=== PATIENT | male | born 2000 ===

== ENCOUNTER 2020-07-16 22:26 | Emergency (ER) | payer MEDICAID, SELFPAY ==
--- NOTE | 2020-07-16 23:23 | XR_ITS ---
EXAMINATION: XR HAND, RIGHT CLINICAL INFORMATION: Trauma COMPARISON: None TECHNIQUE: PA, lateral, and oblique views of the right hand. FINDINGS: Lucency at the base of the third metacarpal. Consistent with fracture. No other definitive fracture is seen. There is no dislocation. XR/XR hand RT min 3V IMPRESSION: Fracture base of third metacarpal
--- NOTE | 2020-07-16 23:25 | ED.UPPEXIN ---
HPI - Extremity Injury (Upper) General Chief Complaint: Extremity Injury, Upper Stated Complaint: Arm injury Time Seen by Provider: 07/16/20 23:02 Source: patient Mode of arrival: ambulatory Limitations: no limitations History of Present Illness HPI narrative: Patient comes emergency room complaining of right hand pain. Prior to arrival, patient punched a wall. Patient complaining of pain over his 3rd 4th and 5th fingers and dorsum of hand. Patient denies injuries anywhere else. MD complaint: injury to: right Related Data Previous Rx's Medication Instructions Recorded tramadol 50 mg PO Q8H PRN #10 tab 07/17/20 Allergies Allergy/AdvReac Type Severity Reaction Status Date / Time amoxicillin [AMOXICILLIN] Allergy Unknown Rash Verified 07/16/20 23:34 ibuprofen [IBUPROFEN] Allergy Unknown RASH Verified 07/16/20 23:34 Penicillins [PENICILLINS] Allergy Unknown UNKNOWN Verified 07/16/20 23:34 Review of Systems Review of Systems: Constitutional : No Weight loss, No Fever, No Chills, No Night Sweats, No Fatigue, No Malaise ENT/Mouth : No Hearing loss, No Ear Pain, No Nasal Congestion, No Sinus Pain, No Hoarseness, No sore throat, No Rhinorrhea, No Swallowing Difficulty Eyes: No Eye Pain, No Swelling, No Redness, No Foreign Body, No Discharge, No Vision Changes Cardiovascular : No Chest Pain, No SOB, No Dyspnea on Exertion, No Orthopnea, No Edema, No Palpitations Respiratory : No Cough, No Sputum, No Wheezing, No Smoke Exposure, No Dyspnea Gastrointestinal : No Nausea, No Vomiting, No Diarrhea, No Constipation, No abdominal Pain, No Hematochezia, No Melena Genitourinary : no irregular bleeding, No Dysuria, No Urinary Frequency, No Hematuria, No Urinary Incontinence, No Urgency, No Flank Pain, No Urinary Flow Changes, No Hesitancy Musculoskeletal : Pain in dorsum of hand and swelling Skin : Small abrasion to dorsum of hand Neuro : No Weakness, No Numbness, No Paresthesias, No Loss of Consciousness, No Dizziness, No Headache Psych : No Anxiety/Panic, No Depression, No SI/HI/AH/VH, No Social Issues, Heme/Lymph: No Bruising, No Bleeding,No Lymphadenopathy Endocrine : No Polyuria, No Polydipsia, No Temperature Intolerance [facility] Past Medical History Medical History (Updated 07/17/20 @ 00:08 by Hazel Morrow MD) Patient denies significant medical history Surgical History (Updated 07/16/20 @ 23:32 by Kayla Villagran) History of knee surgery Social History Social History Advance Directives: No Advance Directives Information Provided: No Physical Exam Vital Signs: Vital Signs: Last Vital Signs Temp 97.6 F 07/16/20 23:29 Pulse 86 07/16/20 23:29 Resp 16 07/16/20 23:29 BP 126/69 07/16/20 23:29 Pulse Ox 97 07/16/20 23:29 Body Mass Index 40.1 Appearance: Alert. Oriented X3. No acute distress. Eyes: Pupils equal, round and reactive to light. ENT: Pharynx normal. Neck: Normal inspection. Neck supple. No lymph nodes noted. No crepitus CVS: Normal heart rate and rhythm. Pulses normal. Normal S1 and S2 Respiratory: No respiratory distress. Breath sounds normal. No Wheezing. No rales Abdomen: Soft and nontender. No rigidity. No distention. good BS x4 Skin: Small abrasion over the 3rd PIP Extremities: No lower extremity edema. Patient is able to flex and extend all fingers, oppose thumb to all fingers, no snuffbox tenderness. Pain to palpation over the 3rd 4th and 5th metacarpals Neuro: Oriented X 3. No motor deficit. No sensory deficit. Moving all extermities. No slurred speech. Course Course Course Narrative: Patient has a closed fracture of the base of the 3rd metacarpal. Patient's hand was splint, he will follow-up with orthopedics. Discharge Plan Discharge Clinical Impression: Fx metacarpal Qualifiers: Encounter type: initial encounter Metacarpal bone: third Fracture type: closed Metacarpal location: base Fracture alignment: nondisplaced Laterality: right Qualified Code(s): S62.342A - Nondisplaced fracture of base of third metacarpal bone, right hand, initial encounter for closed fracture Patient Disposition: Home, Self-Care Instructions: Hand Fracture (ED) Additional Instructions: Please follow-up with orthopedics. Please follow-up with your primary care physician tomorrow. If you have any worsening or new symptoms, please return to the emergency room or call 911 Prescriptions: New tramadol 50 mg tablet 50 mg PO Q8H PRN (Reason: pain) Qty: 10 RF: 0
[2020-07-16 23:29] VITALS: BP 126/69; PULSE 86; RESP 16; TEMP 36.4; O2SAT 97; BMI 40.1
[2020-07-16] MEDS: Acetaminophen 325 MG TABLET 650 MG PO (23:38)
== END 2020-07-17 00:30 | disposition home or self-care (01) ==
PROVIDERS: Emergency Provider Emergency Medicine
DX: S62.342A Nondisplaced fracture of base of third metacarpal bone, right hand, initial encounter for closed fracture (principal); M79.641 Pain in right hand; Y29.XXXA Contact with blunt object, undetermined intent, initial encounter; Y93.9 Activity, unspecified; Y92.009 Unspecified place in unspecified non-institutional (private) residence as the place of occurrence of the external cause; Y99.9 Unspecified external cause status; Z79.899 Other long term (current) drug therapy
CPT/HCPCS: 29125; 73130; 99283

== ENCOUNTER 2020-07-20 17:33 | Outpatient (REF) | payer MEDICAID, SELFPAY | END 2020-07-20 17:34 | disposition home or self-care (01) | LOC: HO.HOSX 17:33 | PROVIDERS: Visit Provider Orthopaedic Surgery | DX: Z13.89 Encounter for screening for other disorder (principal) ==

== ENCOUNTER 2020-07-21 09:51 | Outpatient (REF) | payer MEDICAID, SELFPAY ==
--- NOTE | 2020-07-21 10:24 | XR_ITS ---
EXAMINATION: XR HAND, RIGHT CLINICAL INFORMATION: Pain in right hand. COMPARISON: 07/16/2020 TECHNIQUE: Four views of the right hand. XR/XR hand RT min 3V FINDINGS AND IMPRESSION: Bones have normal alignment throughout the hand and wrist. The joint spaces are well-preserved. Again noted is a nondisplaced, transverse fracture of the proximal metaphysis of the third metacarpal. Currently, no evidence of healing. No periosteal reaction. Soft tissues are mildly swollen at the dorsal aspect of the hand. No radiopaque foreign body.
== END 2020-07-21 09:52 | disposition home or self-care (01) ==
LOC: HO.HOSX 09:51
PROVIDERS: Visit Provider Orthopaedic Surgery
DX: S62.312A Displaced fracture of base of third metacarpal bone, right hand, initial encounter for closed fracture (principal)
CPT/HCPCS: 26600; 73130; 99202

== ENCOUNTER 2020-07-30 08:06 | Emergency (ER) | payer MEDICAID, SELFPAY | END 2020-07-30 11:31 | disposition left against medical advice (07) | PROVIDERS: Emergency Provider Emergency Medicine | DX: M79.642 Pain in left hand (principal) ==

== ENCOUNTER 2020-08-03 08:53 | Outpatient (REF) | payer MEDICAID, SELFPAY | END 2020-08-03 08:54 | disposition home or self-care (01) | LOC: HO.HOSX 08:53 | PROVIDERS: Visit Provider Orthopaedic Surgery | DX: Z13.89 Encounter for screening for other disorder (principal) ==

== ENCOUNTER 2020-08-04 23:02 | Emergency (ER) | payer MEDICAID, SELFPAY ==
--- NOTE | ~2020-08-04 | XR_ITS ---
EXAMINATION: RIGHT HAND, RIGHT ELBOW CLINICAL INFORMATION: Recent fracture with continued pain COMPARISON: Right hand radiographs 07/16/2020 and 07/21/2020 TECHNIQUE: 3 views right hand, 3 views right elbow FINDINGS: Right elbow: No bone joint or soft tissue abnormality is seen. Right hand: Again noted is a horizontal fracture through the metaphysis at the base of the third metacarpal without significant displacement. No significant periosteal reaction is seen as of yet. There is been no interval change in appearance since the prior exam. No other or new fractures are seen. XR/XR hand RT min 3V IMPRESSION: 1. Normal elbow 2. Unchanged fracture base of third metacarpal
--- NOTE | ~2020-08-04 | XR_ITS ---
EXAMINATION: RIGHT HAND, RIGHT ELBOW CLINICAL INFORMATION: Recent fracture with continued pain COMPARISON: Right hand radiographs 07/16/2020 and 07/21/2020 TECHNIQUE: 3 views right hand, 3 views right elbow FINDINGS: Right elbow: No bone joint or soft tissue abnormality is seen. Right hand: Again noted is a horizontal fracture through the metaphysis at the base of the third metacarpal without significant displacement. No significant periosteal reaction is seen as of yet. There is been no interval change in appearance since the prior exam. No other or new fractures are seen. XR/XR elbow RT min 3V IMPRESSION: 1. Normal elbow 2. Unchanged fracture base of third metacarpal
[2020-08-04 23:22] VITALS: BP 129/81; PULSE 100; RESP 16; TEMP 35.8; O2SAT 99; BMI 41.5
--- NOTE | 2020-08-04 23:41 | ED_ITS ---
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) Pain Consistency: constant Location: right and upper extremity (elbow and hand) Quality: aching Radiation: none Relieving factors: nothing Exacerbating factors: range of motion Associated symptoms: denies other symptoms Related Data Previous Rx's Medication Instructions Recorded tramadol 50 mg PO Q8H PRN #10 tab 07/17/20 cyclobenzaprine 10 mg PO TID PRN #14 tab 08/05/20 Allergies Allergy/AdvReac Type Severity Reaction Status Date / Time morphine Allergy Mild rashes Verified 07/21/20 10:06 amoxicillin [AMOXICILLIN] Allergy Unknown Rash Verified 07/21/20 10:06 ibuprofen [IBUPROFEN] Allergy Unknown RASH Verified 07/21/20 10:06 Penicillins [PENICILLINS] Allergy Unknown UNKNOWN Verified 07/21/20 10:06 Review of Systems Review of Systems: Constitutional : No Fever, No Chills ENT/Mouth : No Ear Pain, No Hoarseness, No sore throat Eyes: No Eye Pain, No Swelling, No Redness, No Foreign Body Cardiovascular : No Chest Pain, No SOB Respiratory : No Cough, No Dyspnea Gastrointestinal : No Nausea, No Vomiting, No Diarrhea, No abdominal Pain Genitourinary : No Dysuria, No Hematuria Musculoskeletal : positive joint pain, No Myalgias, No Joint Swelling Skin : No Skin lacerations, No rash Neuro : No Weakness, No Numbness, No Loss of Consciousness, No Dizziness, No Headache PMFSH Past Medical History Attestation statement: The following information was validated with the patient. Medical History Patient denies significant medical history Surgical History History of back surgery History of knee surgery S/P ACL repair Family History Family History (Updated 07/21/20 @ 10:08 by JON Zheng) Mother No problems noted. Father No problems noted. 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 Oriented X3. No acute distress. Eyes: Pupils equal, round and reactive to light. ENT: Pharynx normal. Neck: Normal inspection. Neck supple. CVS: Normal heart rate and rhythm. Pulses normal. Respiratory: No respiratory distress. Breath sounds normal. Abdomen: Soft and nontender. Skin: Skin warm and dry. Normal skin color. Normal skin turgor. Extremities: No lower extremity edema. No calf ttp has splint on R wrist - NV intact distally c/o pain at R elbow and R wrist no obvious deformity or swelling Neuro: Oriented X 3. No motor deficit. No sensory deficit. Course Course Course Narrative: no acute fractures noted MDM - Extremity (Nontraumatic) MDM Narrative Medical decision making narrative: 20 yo male with known R 3rd metacarpal fracture already being treated by Dr. Reeves has splint on arrival - NV intact distally at this time will need xrays of R elbow and R wrist - PO medications, no obvious deformity Discharge Plan Discharge Clinical Impression: Elbow pain, right, Right hand pain Patient Disposition: Home, Self-Care Instructions: Arm Pain (ED) Additional Instructions: return to ED for any worsening symptoms or concerns your xrays showed no fracture, wear splint as directed Prescriptions: New cyclobenzaprine 10 mg tablet 10 mg PO TID PRN (Reason: muscle spasm) Qty: 14 RF: 0 No Action tramadol 50 mg tablet 50 mg PO Q8H PRN (Reason: pain) Qty: 10 RF: 0 Stand Alone Forms: Work/School Release
[2020-08-04] MEDS: traMADoL HCL 50 MG TABLET PO (23:45)
[2020-08-04] MEDS: Cyclobenzaprine HCl 10 MG TABLET PO (23:45)
== END 2020-08-05 00:24 | disposition home or self-care (01) ==
LOC: HO.ED 08-05 00:07
PROVIDERS: Emergency Provider Emergency Medicine
DX: M25.521 Pain in right elbow (principal); M79.641 Pain in right hand
CPT/HCPCS: 73080; 73130; 99283; 99284

== ENCOUNTER 2020-08-20 10:55 | Emergency (ER) | payer MEDICAID, SELFPAY ==
[2020-08-20 11:08] VITALS: BP 116/81; PULSE 102; RESP 18; O2SAT 99; BMI 41.7
[2020-08-20 11:13] VITALS: BP 116/81; PULSE 102; RESP 18; O2SAT 99
--- NOTE | 2020-08-20 11:38 | ED.URI ---
HPI - URI/Sore Throat General Chief Complaint: Upper Respiratory Symptoms Stated Complaint: sore throat Time Seen by Provider: 08/20/20 10:59 Source: patient Mode of arrival: ambulatory Limitations: no limitations History of Present Illness HPI Narrative: 20-year-old male presenting to the ED with complaints of a sore throat for 2 days. Reports that he had some shortness of breath yesterday which reolved after taking [id number] flu medication. 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 Reports he was positive for COVID in June 2019. Denies any other symptoms complaints or concerns at this time. MD elicited complaint: sore throat Onset (ago): day(s) (Two days) Consistency: constant Severity: moderate Able to tolerate fluids by mouth: Yes Exacerbating factors: swallowing Relieving factors: nothing Associated symptoms: denies other symptoms Treatments prior to arrival: other ([id number] flu medication per patient) Related Data Previous Rx's Medication Instructions Recorded tramadol 50 mg PO Q8H PRN #10 tab 07/17/20 cyclobenzaprine 10 mg PO TID PRN #14 tab 08/05/20 azithromycin See Rx Instructions .ROUTE 08/20/20 .COMPLEX #6 tab Allergies Allergy/AdvReac Type Severity Reaction Status Date / Time morphine Allergy Mild rashes Verified 07/21/20 10:06 amoxicillin [AMOXICILLIN] Allergy Unknown Rash Verified 07/21/20 10:06 ibuprofen [IBUPROFEN] Allergy Unknown RASH Verified 07/21/20 10:06 Penicillins [PENICILLINS] Allergy Unknown UNKNOWN Verified 07/21/20 10:06 Review of Systems Review of Systems: Constitutional : No Fever, No Chills, No fatigue, No Malaise ENT/Mouth : + sore throat, No runny nose Eyes: No Discharge Cardiovascular : No Chest Pain, No SOB Respiratory : No Cough, No Sputum, No Wheezing, No Smoke Exposure, No Dyspnea Gastrointestinal : No Nausea, No Vomiting, No Diarrhea Genitourinary : No irregular bleeding, No Dysuria, No Urinary Frequency, No Hematuria, No Urinary Incontinence, No Urgency, No Flank Pain, Musculoskeletal : No Myalgia Skin : No rash Neuro : No Headache Yes all other systems are reviewed and are negative PMFSH Past Medical History Attestation statement: The following information was validated with the patient. Medical History Patient denies significant medical history Surgical History History of back surgery History of knee surgery S/P ACL repair Family History Family History Mother No problems noted. Father No problems noted. 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 Blood pressure normal. Heart rate normal. Respiration rate normal. Temperature normal. Oxygen saturation normal. Appearance: Alert. Oriented X3. No acute distress. Head: Normal external exam. Normocephalic. Atraumatic. Eyes: PERRLA. EOMI. Conjunctiva and sclera normal. Eyelids normal. ENT: EAC normal. TM's Normal. Posterior pharynx mildly erythematous with exudate noted. Uvula midline. Moist mucous membranes. No trismus noted. No drooling noted. No muffled voice noted. Neck: Normal inspection. Neck supple. FROM. No adenopathy. Thyroid Normal. No meningeal signs. No neck mass noted. CVS: Normal heart rate and rhythm. Heart sound normal. No murmurs noted. Pulses normal throughout. Respiratory: No respiratory distress. Painless inspiration. Breath sounds normal. No wheezes/rales/rhonchi noted. Chest nontender. No accessory muscle usage noted or decreased air movement noted. Back: Full range of motion noted. Skin: Skin warm and dry. Normal skin color. Normal skin turgor. No rashes/lesions/lacerations noted. Extremities: No lower extremity edema. Extremities exhibit normal range of motion. Extremities nontender. Neuro: Oriented X 3. No motor deficit. No sensory deficit. Reflexes normal. MDM - URI/Sore Throat Medical Records Attestation: I reviewed the patient's medical records. Lab Data Attestation: I reviewed the patient's lab results. Discharge Plan Discharge Clinical Impression: Pharyngitis Patient Disposition: Home, Self-Care Instructions: Pharyngitis (ED), COVID-19 (Coronavirus Disease 2019) (ED) Additional Instructions: Based on your symptoms and history we have sent a COVID-19. Although your RESULT IS PENDING at this time. RESULTS should return within 72 hours. At this time you will be contacted with either NEGATIVE OR POSITIVE results. -Please wait until we contact you for your results. At this time you will be okay for discharge. Please plan for self quarantine for up to 14 days. Do not expose yourself to others. You may not go to work. If testing does come back negative you may return to activities as long as you are no longer having any symptoms for at least 3 days. Please continue to follow cold instructions and wash your hands frequently. You may take Tylenol as directed on the bottle for pain or fever. Patient seen in the emergency department on 08/20/20 and should be excused from work until negative test results AND until 72 hours without any symptoms AND at least 10 days have passed since symptoms first appeared or since last exposure to COVID-19 positive patient CDC Guidelines for home isolation: - Stay away from others - WEAR A MASK if you are sick AND STAY HOME - Cover your mouth and nose with a tissue when you cough or sneeze. Dispose of tissues in a lined trash can and wash your hands immediately with soap and water for at least 20 seconds. If soap and water are not available, clean hands with alcohol-based hand president that contains at least 60% alcohol. - Clean your hands often with soap and water for at least 20 seconds - Avoid touching your eyes, nose and mouth with unwashed hands - Do not share dishes, drinking glasses, cups, eating utensils, towels, or bedding with other people in your home. After using these items, wash them thoroughly with soap and water or put in the learning center coordinator. - Clean high-touch surfaces in your isolation area ( sick room and bathroom) every day; let a caregiver clean and disinfect high-touch surfaces in other areas of the home. Clean the area or item with soap and water or another detergent if it is dirty. Then, use a household disinfectant. - Limit contact with pets and animals: If you must care for a pet, wash your hands before and after interacting with them). Prescriptions: New azithromycin 250 mg tablet See Rx Instructions .ROUTE .COMPLEX Qty: 6 RF: 0 No Action tramadol 50 mg tablet 50 mg PO Q8H PRN (Reason: pain) Qty: 10 RF: 0 cyclobenzaprine 10 mg tablet 10 mg PO TID PRN (Reason: muscle spasm) Qty: 14 RF: 0 Referrals: [place] [Primary Care Provider] - 2 days Stand Alone Forms: Work/School Release Print Language: Estonian
[2020-08-20 12:49] LABS: Influenza A PCR NEGATIVE (Negative); Influenza B PCR NEGATIVE (Negative); Resp Syncy Virus RNA Qual PCR NEGATIVE (Negative); SARS COV2 PCR INHOUSE NEGATIVE (Negative)
== END 2020-08-20 12:20 | disposition home or self-care (01) ==
PROVIDERS: Physician Assistant Medical; Emergency Provider Emergency Medicine
DX: J02.9 Acute pharyngitis, unspecified (principal); Z86.16 Personal history of COVID-19; F17.200 Nicotine dependence, unspecified, uncomplicated; F12.90 Cannabis use, unspecified, uncomplicated
CPT/HCPCS: 0241U; 36415; 87880; 99283; 99285

== ENCOUNTER 2020-09-26 18:53 | Emergency (ER) | payer MEDICAID, SELFPAY ==
--- NOTE | ~2020-09-26 | XR_ITS ---
EXAMINATION: XR TOES, RIGHT CLINICAL INFORMATION: Stubbed right great toe. Pain COMPARISON: None TECHNIQUE: 3 views of the right toes were obtained. FINDINGS: Questionable tiny avulsion fracture along the medial cortex of the distal end of the first proximal phalanx. Remainder of the visualized osseous structures and joints are unremarkable. No soft tissue air or radiopaque foreign body. XR/XR toe RT min 2V IMPRESSION: Questionable tiny avulsion fracture along the medial cortex of the distal end of the right foot first proximal phalanx.
[2020-09-26 19:02] VITALS: BP 148/79; PULSE 95; RESP 18; TEMP 36.3; O2SAT 97; BMI 37.3
[2020-09-26] MEDS: Acetaminophen 325 MG TABLET 650 MG PO (19:39)
--- NOTE | 2020-09-26 19:54 | ED.LOWEXIN ---
HPI - Extremity Injury (Lower) General Chief Complaint: Extremity Injury, Lower Stated Complaint: stubbed toe Time Seen by Provider: 09/26/20 19:52 Source: patient Mode of arrival: ambulatory Limitations: no limitations History of Present Illness HPI Narrative: Stubbed her right great toe on TV stand at home while cleaning. Having pain in the right great toe. complaint: foot injury Onset (ago): minute(s) Injury: Right: foot Place: home Severity: mild Relieving factors: immobilization Exacerbating factors: nothing Context: direct blow Other symptoms: none Treatments prior to arrival: cold therapy Related Data Previous Rx's Medication Instructions Recorded tramadol 50 mg PO Q8H PRN #10 tab 07/17/20 cyclobenzaprine 10 mg PO TID PRN #14 tab 08/05/20 azithromycin See Rx Instructions .ROUTE 08/20/20 .COMPLEX #6 tab Allergies Allergy/AdvReac Type Severity Reaction Status Date / Time morphine Allergy Mild rashes Verified 09/26/20 19:01 amoxicillin [AMOXICILLIN] Allergy Unknown Rash Verified 09/26/20 19:01 ibuprofen [IBUPROFEN] Allergy Unknown RASH Verified 09/26/20 19:01 Penicillins [PENICILLINS] Allergy Unknown UNKNOWN Verified 09/26/20 19:01 Review of Systems Review of Systems: Constitutional: No Weight loss, No Fever, No Chills, No Night Sweats, No Fatigue, No Malaise ENT/Mouth: No Hearing loss, No Ear Pain, No Nasal Congestion, No Sinus Pain, No Hoarseness, No sore throat, No Rhinorrhea, No Swallowing Difficulty Eyes: No Eye Pain, No Swelling, No Redness, No Foreign Body, No Discharge, No Vision Changes Cardiovascular: No Chest Pain, No SOB, No Dyspnea on Exertion, No Orthopnea, No Edema, No Palpitations Respiratory: No Cough, No Sputum, No Wheezing, No Smoke Exposure, No Dyspnea Gastrointestinal: No Nausea, No Vomiting, No Diarrhea, No Constipation, No abdominal Pain, No Hematochezia, No Melena Genitourinary: No Urinary Frequency, No Hematuria, No Urinary Incontinence, No Urgency, No Flank Pain, No Urinary Flow Changes, No Hesitancy Musculoskeletal: No joint pain, No Myalgias, No Joint Swelling, as noted per HPI Skin: No Skin Lesions, No rash Neuro: No Weakness, No Numbness, No Paresthesias, No Loss of Consciousness, No Dizziness, No Headache Psych: No Social Issues Heme/Lymph: No Bruising, No Bleeding,No Lymphadenopathy Endocrine: No Polyuria, No Polydipsia, No Temperature Intolerance Yes all other systems are reviewed and are negative [facility] Past Medical History Medical History Patient denies significant medical history Surgical History History of back surgery History of knee surgery S/P ACL repair Family History Family History Mother No problems noted. Father No problems noted. 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 Physical Exam Vital Signs: Vital Signs: Last Vital Signs Temp 97.4 F 09/26/20 19:02 Pulse 95 09/26/20 19:02 Resp 18 09/26/20 19:02 BP 148/79 H 09/26/20 19:02 Pulse Ox 97 09/26/20 19:02 Body Mass Index 37.3 Reviewed Const: General: cooperative and healthy appearing; No acute distress or intoxicated appearing Nutritional Appearance: average body habitus Orientation/consciousness: patient oriented x3 HENMT: Head: Yes normal to inspection Ears: hearing grossly normal bilaterally Eyes: General: appearance normal, both eyes and all related structures Visual Lora: normal visual lora by confrontation Resp: Auscultation: clear to auscultation bilaterally Cardio: Rhythm: regular rhythm Heart sounds: S1 normal heart sound present and S2 normal heart sound present : General: Yes no CVA tenderness Back/Spine/Pelvis: Back: no CVA tenderness Skin: General skin exam: no rashes or lesions noted Neuro: General: patient oriented x3 Extrem: General: Yes normal to inspection Ankle/foot/toe images: 1. Slightly ecchymosis area over the dorsum of the toe. No open wound. No erythema. Nailbed within normal limits. Course Course Course Narrative: Placed in postop shoe with ortho follow-up. MDM - Extremity Injury (Lower) Medical Records Attestation: I reviewed the patient's medical records. Lab Data Attestation: I reviewed the patient's lab results. Imaging Data Foot x-ray: Radiologist's impression: [address] [id number] ReportSigned Patient: Navdeep MuhammadMR#: [id number]: 2000Acct:[id number]/Sex: 20 / MADM Date: 09/26/20Loc: HO.EDAttending Dr: Ordering Physician: Generic ED Physician Date of Service: 09/26/20 Procedure(s): XR toe RT min 2V Accession Number(s): [id number] cc: Generic ED Physician~ EXAMINATION: XR TOES, RIGHT CLINICAL INFORMATION: Stubbed right great toe. Pain COMPARISON: None TECHNIQUE: 3 views of the right toes were obtained. FINDINGS: Questionable tiny avulsion fracture along the medial cortex of the distal end of the first proximal phalanx. Remainder of the visualized osseous structures and joints are unremarkable. No soft tissue air or radiopaque foreign body. XR/XR toe RT min 2V IMPRESSION: Questionable tiny avulsion fracture along the medial cortex of the distal end of the right foot first proximal phalanx. Dictated By:SWAPNIL OSUNA MDSigned By:<Electronically signed by SWAPNIL OSUNA MD in OV>09/26/201924 DD/ 13TD/TT: Chief Deputy Court Clerk: AP Discharge Plan Discharge Clinical Impression: Fracture of toe Qualifiers: Encounter type: initial encounter Toe: great toe Fracture type: closed Patient Disposition: Home, Self-Care Additional Instructions: Rest, ice, elevate, compress Tylenol for pain discomfort Were orthopedic shoe for comfort Follow-up with Orthopedics as discussed Return if any concerns or worsening symptoms Thank you Prescriptions: No Action azithromycin 250 mg tablet See Rx Instructions .ROUTE .COMPLEX Qty: 6 RF: 0 tramadol 50 mg tablet 50 mg PO Q8H PRN (Reason: pain) Qty: 10 RF: 0 cyclobenzaprine 10 mg tablet 10 mg PO TID PRN (Reason: muscle spasm) Qty: 14 RF: 0 Referrals: Chritsiane Khan MD [Physician] - 2 weeks
== END 2020-09-26 20:30 | disposition home or self-care (01) ==
PROVIDERS: Emergency Provider Emergency Medicine
DX: S92.421A Displaced fracture of distal phalanx of right great toe, initial encounter for closed fracture (principal); W22.03XA Walked into furniture, initial encounter; Y93.89 Activity, other specified; Y92.019 Unspecified place in single-family (private) house as the place of occurrence of the external cause; Y99.9 Unspecified external cause status
CPT/HCPCS: 73660; 99283

== ENCOUNTER 2021-01-16 03:38 | Emergency (ER) | payer OTHER, SELFPAY ==
--- NOTE | ~2021-01-16 | CT_ITS ---
EXAMINATION: NONCONTRAST HEAD CT NONCONTRAST MAXILLOFACIAL CT NONCONTRAST CERVICAL SPINE CT INDICATION INFORMATION: Fall, EtOH COMPARISON: None TECHNIQUE: Separate noncontrast CT examinations of the head, maxillofacial bones, and cervical spine were performed. Coronal and sagittal images were created for each examination at the technologist workstation. DOSE LOWERING TECHNIQUES: This CT examination was performed using dose optimization techniques as appropriate, variously including the following: - Automated exposure control - Adjustment of mA and/or kV according to patient size (this includes techniques or standardized protocols for targeted exams were dose is matched to indication/reason for exam; i.e. extremities or head) - Use of iterative reconstruction technique DLP: 2062 mGy-cm FINDINGS: Head: There is no evidence of acute intracranial hemorrhage or territorial infarction. No abnormal mass-effect or midline shift is seen. Pulliam to white matter differentiation is well preserved. No extra-axial fluid collections are identified. The ventricles are normal in size. There is no abnormal attenuation within the brain parenchyma. The osseous structures and soft tissues are normal. The mastoid air cells are well aerated. Maxillofacial: Subtle left nasal bone fracture is noted. Mucous retention cyst is noted in the left sphenoid sinus. Small mucous retention cyst noted in the right maxillary sinus. The uncinate process is normal bilaterally. There is mucosal thickening of the right infundibulum. There is leftward deviation of the nasal septum. The mandibular condyles are well-seated in the condylar fossa. The orbits demonstrate a normal appearance bilaterally. The globes are intact, and there are no suspicious findings to suggest retrobulbar hemorrhage. Cervical spine: There is anatomic alignment of the vertebral bodies and posterior elements. Vertebral body heights are maintained. Intervertebral disc spaces are preserved. No evidence of acute fracture. No prevertebral soft tissue swelling. The included thyroid gland is unremarkable. CT/CT cervical spine wo con IMPRESSION: Subtle left nasal bone fracture, which may be acute; clinical correlation recommended. No acute findings identified in the head or cervical spine.
[2021-01-16 03:59] VITALS: BP 98/49; PULSE 80; RESP 16; TEMP 36.1; O2SAT 99; BMI 41.9
--- NOTE | 2021-01-16 05:44 | ED.ALCOHOL ---
HPI - Alcohol General Chief Complaint: ETOH/Substance Use Stated Complaint: deep lac on upper lip Time Seen by Provider: 01/16/21 05:38 Source: patient Mode of arrival: ambulatory Limitations: no limitations History of Present Illness HPI narrative: Patient comes emergency room complaining of alcohol intoxication and a laceration to the lip. Patient states that he drank a lot of alcohol, patient states that he does not remember much what happened. The girlfriend found on the floor. Related Data Previous Rx's Medication Instructions Recorded tramadol 50 mg PO Q8H PRN #10 tab 07/17/20 cyclobenzaprine 10 mg PO TID PRN #14 tab 08/05/20 azithromycin See Rx Instructions .ROUTE 08/20/20 .COMPLEX #6 tab tramadol 50 mg PO BID PRN #5 tab 01/16/21 Allergies Allergy/AdvReac Type Severity Reaction Status Date / Time morphine Allergy Mild rashes Verified 09/26/20 19:01 amoxicillin [AMOXICILLIN] Allergy Unknown Rash Verified 09/26/20 19:01 ibuprofen [IBUPROFEN] Allergy Unknown RASH Verified 09/26/20 19:01 Penicillins [PENICILLINS] Allergy Unknown UNKNOWN Verified 09/26/20 19:01 Review of Systems Review of Systems: Constitutional : No Weight loss, No Fever, No Chills, No Night Sweats, No Fatigue, No Malaise ENT/Mouth : No Hearing loss, No Ear Pain, No Nasal Congestion, No Sinus Pain, No Hoarseness, No sore throat, No Rhinorrhea, No Swallowing Difficulty Eyes: No Eye Pain, No Swelling, No Redness, No Foreign Body, No Discharge, No Vision Changes Cardiovascular : No Chest Pain, No SOB, No Dyspnea on Exertion, No Orthopnea, No Edema, No Palpitations Respiratory : No Cough, No Sputum, No Wheezing, No Smoke Exposure, No Dyspnea Gastrointestinal : No Nausea, No Vomiting, No Diarrhea, No Constipation, No abdominal Pain, No Hematochezia, No Melena Genitourinary : no irregular bleeding, No Dysuria, No Urinary Frequency, No Hematuria, No Urinary Incontinence, No Urgency, No Flank Pain, No Urinary Flow Changes, No Hesitancy Musculoskeletal : No joint pain, No Myalgias, No Joint Swelling Skin : Laceration to the lip and philtrum Neuro : No Weakness, No Numbness, No Paresthesias, No Loss of Consciousness, No Dizziness, No Headache Psych : No Anxiety/Panic, No Depression, No SI/HI/AH/VH, No Social Issues, Heme/Lymph: No Bruising, No Bleeding,No Lymphadenopathy Endocrine : No Polyuria, No Polydipsia, No Temperature Intolerance [facility], [facility] Past Medical History Medical History Patient denies significant medical history Surgical History History of back surgery History of knee surgery S/P ACL repair Family History Family History Mother No problems noted. Father No problems noted. 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 Oriented X3. No acute distress. Eyes: Pupils equal, round and reactive to light. ENT: Pharynx normal. Neck: Normal inspection. Neck supple. No lymph nodes noted. No crepitus CVS: Normal heart rate and rhythm. Pulses normal. Normal S1 and S2 Respiratory: No respiratory distress. Breath sounds normal. No Wheezing. No rales Abdomen: Soft and nontender. No rigidity. No distention. good BS x4 Skin: Skin warm and dry. Multiple ecchymoses to forehead and facial cheeks, 2 cm laceration to the philtrum, laceration 0.5 cm to the upper lip Extremities: No lower extremity edema. No lower extremity edema. No Lacerations. No Rash Neuro: Oriented X 3. No motor deficit. No sensory deficit. Moving all extermities. No slurred speech. Course Course Course Narrative: I discussed the CT scan with the patient, he does have a nasal fracture. Sutures were applied to the patient's lip and philtrum Procedures Laceration Laceration 1: Site: lip Size (cm): 0.5 Description: linear Depth: simple, single layer Local Anesthetic: lidocaine 2% Amount of anesthesia used (mL): 0.5 Skin layer closed with: nylon Size (cm): 6-0 Number of sutures: 4 Technique: simple, interrupted Laceration 2: Site: face (Philtrum) Size (cm): 2 Description: irregular Depth: simple, single layer Local Anesthetic: lidocaine 2% Amount of anesthesia used (mL): 2 Skin layer closed with: nylon Size (cm): 6-0 Number of sutures: 7 Technique: simple, interrupted MDM - Alcohol Imaging Data Head, cervical, facial bone CT scan: Radiologist's impression: Head: There is no evidence of acute intracranial hemorrhage or territorial infarction. No abnormal mass-effect or midline shift is seen. Pulliam to white matter differentiation is well preserved. No extra-axial fluid collections are identified. The ventricles are normal in size. There is no abnormal attenuation within the brain parenchyma. The osseous structures and soft tissues are normal. The mastoid air cells are well aerated. Maxillofacial: Subtle left nasal bone fracture is noted. Mucous retention cyst is noted in the left sphenoid sinus. Small mucous retention cyst noted in the right maxillary sinus. The uncinate process is normal bilaterally. There is mucosal thickening of the right infundibulum. There is leftward deviation of the nasal septum. The mandibular condyles are well-seated in the condylar fossa. The orbits demonstrate a normal appearance bilaterally. The globes are intact, and there are no suspicious findings to suggest retrobulbar hemorrhage. Cervical spine: There is anatomic alignment of the vertebral bodies and posterior elements. Vertebral body heights are maintained. Intervertebral disc spaces are preserved. No evidence of acute fracture. No prevertebral soft tissue swelling. The included thyroid gland is unremarkable. CT/CT cervical spine wo con IMPRESSION: Subtle left nasal bone fracture, which may be acute; clinical correlation recommended. No acute findings identified in the head or cervical spine. Discharge Plan Discharge Clinical Impression: Closed fracture nasal bone Qualifiers: Encounter type: initial encounter Qualified Code(s): S02.2XXA - Fracture of nasal bones, initial encounter for closed fracture Alcohol intoxication Qualifiers: Complication of substance-induced condition: uncomplicated Qualified Code(s): F10.920 - Alcohol use, unspecified with intoxication, uncomplicated Face lacerations Qualifiers: Encounter type: initial encounter Qualified Code(s): S01.81XA - Laceration without foreign body of other part of head, initial encounter Patient Disposition: Home, Self-Care Instructions: Nasal Fracture (ED), Laceration (ED), Alcohol Intoxication (ED) Additional Instructions: The sutures need to be removed in 7-10 days. Please follow-up with your primary care physician tomorrow. If you have any worsening or new symptoms, please return to the emergency room or call 911 Prescriptions: New tramadol 50 mg tablet 50 mg PO BID PRN (Reason: pain) Qty: 5 RF: 0 No Action azithromycin 250 mg tablet See Rx Instructions .ROUTE .COMPLEX Qty: 6 RF: 0 tramadol 50 mg tablet 50 mg PO Q8H PRN (Reason: pain) Qty: 10 RF: 0 cyclobenzaprine 10 mg tablet 10 mg PO TID PRN (Reason: muscle spasm) Qty: 14 RF: 0
[2021-01-16] MEDS: Lidocaine HCl 2 % MPF 5 ML VIAL 15 ML INFILTRATI (06:30)
--- NOTE | 2021-01-16 06:30 | PC.NURSE ---
(EDT) at bedside suturing patient's lip. Will continue to monitor.
== END 2021-01-16 07:20 | disposition home or self-care (01) ==
PROVIDERS: Emergency Provider Emergency Medicine
DX: F10.920 Alcohol use, unspecified with intoxication, uncomplicated (principal); Y90.9 Presence of alcohol in blood, level not specified; S01.511A Laceration without foreign body of lip, initial encounter; S01.81XA Laceration without foreign body of other part of head, initial encounter; S02.2XXA Fracture of nasal bones, initial encounter for closed fracture; W19.XXXA Unspecified fall, initial encounter; F12.90 Cannabis use, unspecified, uncomplicated; Y93.9 Activity, unspecified; Y92.9 Unspecified place or not applicable; Y99.9 Unspecified external cause status
CPT/HCPCS: 12011; 70450; 70486; 72125; 99283; 99284

== ENCOUNTER 2021-03-21 10:56 | Emergency (ER) | payer OTHER, SELFPAY ==
--- NOTE | ~2021-03-21 | XR_ITS ---
EXAMINATION: BILATERAL ELBOW. CLINICAL INFORMATION: Bilateral elbow pain. COMPARISON: None TECHNIQUE: 3 views each elbow. FINDINGS: Left elbow: There is no visible acute fracture, dislocation or subluxation seen. No abnormal joint effusion. Right elbow: There is no visible acute fracture, dislocation or subluxation seen. The soft tissues are normal. XR/XR elbow LT min 3V IMPRESSION: Unremarkable bilateral elbow exam.
--- NOTE | ~2021-03-21 | CT_ITS ---
EXAMINATION: CT HEAD WITHOUT CONTRAST CLINICAL INFORMATION: Tremor. COMPARISON: None TECHNIQUE: Contiguous axial imaging was performed from the skull base to vertex without intravenous administration of contrast. This CT examination was performed using dose optimization techniques as appropriate, variously including the following: *Automated exposure control *Adjustment of mA and/or kV according to patient size (this includes techniques or standardized protocols for targeted exams where dose is matched to indication/reason for exam; i.e. extremities or head) *Use of iterative reconstruction technique DLP: 836 mGy-cm FINDINGS: There is no evidence of acute intracranial hemorrhage or territorial infarction. No abnormal mass effect or midline shift is seen. Pulliam to white matter differentiation is well preserved. No extra-axial fluid collections are identified. The ventricles are normal in size. There is no abnormal attenuation within the brain parenchyma. The osseous structures and soft tissues are normal. There is a moderate size polyp or retention cyst left maxillary sinus. There is minimal mucoperiosteal thickening bilateral posterior ethmoid sinuses. CT/CT head/brain wo con IMPRESSION: No acute intracranial process seen.
--- NOTE | ~2021-03-21 | XR_ITS ---
EXAMINATION: BILATERAL ELBOW. CLINICAL INFORMATION: Bilateral elbow pain. COMPARISON: None TECHNIQUE: 3 views each elbow. FINDINGS: Left elbow: There is no visible acute fracture, dislocation or subluxation seen. No abnormal joint effusion. Right elbow: There is no visible acute fracture, dislocation or subluxation seen. The soft tissues are normal. XR/XR elbow RT min 3V IMPRESSION: Unremarkable bilateral elbow exam.
[2021-03-21 11:04] VITALS: BP 122/76; PULSE 66; RESP 18; TEMP 36.7; O2SAT 99; BMI 38.7
--- NOTE | 2021-03-21 11:42 | ED.GENADULT ---
HPI - General Adult General Chief complaint: General Medical Stated complaint: trembles, arms & hands numb Time Seen by Provider: 03/21/21 11:54 Source: patient Mode of arrival: ambulatory Limitations: no limitations History of Present Illness HPI narrative: Patient presents to ED for tingling in extremities. Patient states this has been going on for about 3 weeks. Patient denies any episode of urinary/bowel incontinence while having tingling in extremities. Patient states having bilateral elbow pain causing tingling in his hands. Patient states also tingling in his legs. Patient denies ever losing consciousness or anyone telling him he was foaming at the mouth or any loss of consciousness. Patient states history of seizure but has not seen a neurologist for follow-up. Patient main concern is tingling in extremities. Patient denies any headache, shortness of breath, slurred speech, facial droop, paralysis. Related Data Previous Rx's Medication Instructions Recorded tramadol 50 mg tablet 50 mg PO Q8H PRN #10 tab 07/17/20 cyclobenzaprine 10 mg tablet 10 mg PO TID PRN #14 tab 08/05/20 azithromycin 250 mg tablet See Rx Instructions .ROUTE 08/20/20 .COMPLEX #6 tab tramadol 50 mg tablet 50 mg PO BID PRN #5 tab 01/16/21 Allergies Allergy/AdvReac Type Severity Reaction Status Date / Time morphine Allergy Mild rashes Verified 09/26/20 19:01 amoxicillin [AMOXICILLIN] Allergy Unknown Rash Verified 09/26/20 19:01 ibuprofen [IBUPROFEN] Allergy Unknown RASH Verified 09/26/20 19:01 Penicillins [PENICILLINS] Allergy Unknown UNKNOWN Verified 09/26/20 19:01 Review of Systems Review of Systems: Yes all other systems are reviewed and are negative Constitutional: Constitutional: Reports as per HPI and Reports no additional constitutional complaints Eyes: Eyes: Reports as per HPI and Reports no additional eye complaints ENT: Reports system reviewed and no additional complaints, except as documented and Reports as per HPI Cardiovascular: Cardiovascular: Reports as per HPI and Reports no additional cardiovascular complaints Respiratory: Respiratory: Reports as per HPI and Reports no additional respiratory complaints Gastrointestinal: Gastrointestinal: Reports as per HPI and Reports no additional gastrointestinal complaints Genitourinary: Genitourinary: Reports no additional male genitourinary complaints and Reports as per HPI Musculoskeletal: Musculoskeletal: Reports no additional musculoskeletal complaints, Reports as per HPI and Reports arthralgias (Bilateral elbow pain) Neurologic: Reports system reviewed and no additional complaints, except as documented and Reports as per HPI Comments: Tingling in extremities. Psychiatric: Psychiatric: Reports no additional psychiatric complaints and Reports as per HPI [facility] Past Medical History Surgical History History of back surgery History of knee surgery S/P ACL repair Family History Family History Mother No problems noted. Father No problems noted. 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 Physical Exam Vital Signs: Vital Signs: Last Vital Signs Temp 98.0 F 03/21/21 11:04 Pulse 66 03/21/21 11:04 Resp 18 03/21/21 11:04 BP 122/76 03/21/21 11:04 Pulse Ox 99 03/21/21 11:04 Body Mass Index 38.7 Const: General: cooperative, healthy appearing, comfortable, no acute distress, well developed, alert, awake and Physically active Orientation/consciousness: patient oriented x3 HENMT: Head: Yes normal to inspection and Yes No palpable skull fracture present Eyes: General: appearance normal, both eyes and all related structures Neck: Neck: Yes normal visual inspection, Yes full ROM, Yes no lymphadenopathy, Yes no meningeal signs, Yes trachea midline, Yes supple and No tender Chest: Chest palpation & inspection: normal inspection of the chest and normal palpation of entire chest wall Resp: Effort & Inspection: normal respiratory effort and able to speak in complete sentences Auscultation: clear to auscultation bilaterally Cardio: Jugular venous distension: no JVD Heart sounds: S1 normal heart sound present and S2 normal heart sound present GI: Inspection: Yes normal to inspection and No abdominal wall ecchymosis Palpation (GI): Soft to palpation, not firm, nontender, no guarding and not rigid : General: No CVA tenderness and Yes no CVA tenderness Back/Spine/Pelvis: Back: no CVA tenderness, No CVA tenderness and No back tenderness Skin: General skin exam: no rashes or lesions noted and elasticity normal Neuro: Other: Negative for any tremors. Negative for any slurred speech. Negative for any facial droop. Negative for paralysis of extremities. All extremities equal strength 5+. [id number] and rapid hand movement intact. Negative Romberg. Negative nystagmus. General: patient oriented x3, gait normal, no meningeal signs and CN's II-XI intact bilaterally Cranial nerves: Yes CN's II-XII intact bilaterally Extrem: General: Yes normal to inspection and Yes full ROM Elbow/forearm/wrist images: 1. Mild tenderness on palpation. Negative for any erythema, swelling, redness, warmth, stiffness pr negative for any ecchymosis. Brachial and radial pulse intact. Neuro/motor exam intact. 2. Mild tenderness on palpation. Negative for any erythema, swelling, redness, warmth, stiffness pr negative for any ecchymosis. Brachial and radial pulse intact. Neuro/motor exam intact. Psych: Appearance: grossly normal, well kempt and not disheveled Course Course Course Narrative: Patient not having any seizure. History physical exam does not indicate seizure. Patient having any tremors. Will negative for any neuro deficit. We will do basic labs including electrolytes, CPK, head CT, and bilateral elbow x-ray. Reevaluation(s) Reevaluation #1: Patient labs are normal and at baseline. Head CT scan normal. Bilateral elbow x-ray negative for any fracture or deformity. Diagnosis paresthesia. Patient informed to follow-up with neurology. Once again history physical exam does not indicate seizure. Not concerned for any cardiac etiology. Patient denies any chest pain or shortness of breath. No concern for pulmonary embolus or septic joint. Patient does not have any upper extremity swelling, calf pain, chest pain leg swellin,or shortness of breath. Negative for signs of dehydration rhabdomyolysis. Not concerning for withdrawal. Patient denies any alcohol or drug abuse. Patient only takes marijuana from dispensary. Time: 14:20 Medical Decision Making [facility] Narrative Medical decision making narrative: Paresthesia Lab Data Result diagrams: 03/21/21 12:17 03/21/21 12:17 Labs: Lab Results 03/21/21 03/21/21 03/21/21 Range/Units 12:17 12:17 12:47 WBC 10.7 (4.8-10.8) X10*3/uL RBC 5.11 (4.60-5.80) X10*6/uL Hgb 14.1 (14.0-18.0) g/dl Hct 40.7 L (42-52) % MCV 79.6 L (80-98) fL MCH 27.6 (27.0-33.0) pg MCHC 34.6 (31.0-36.0) g/dl RDW 13.4 (11.0-16.0) % Plt Count 251 (160-400) X10*3/uL MPV 9.8 (9.4-12.4) fL Immature Gran % (Auto) 0.2 (0.0-0.4) % Neut % (Auto) 52.0 (45-73) % Lymph % (Auto) 36.3 (20-40) % Mccook % (Auto) 5.3 (2-11) % Eos % (Auto) 5.7 H (0-4) % Baso % (Auto) 0.5 (0-2) % Lymph # (Auto) 3.9 (1.2-4.9) X10*3/uL [place] # (Auto) 0.6 (0.1-1.2) X10*3/uL Eos # (Auto) 0.6 H (0.0-0.4) X10*3/uL Baso # (Auto) 0.1 (0.0-0.2) X10*3/uL Abs Immat Gran (auto) 0.02 (0.00-0.03) X10*3/uL Absolute Neuts (auto) 5.6 (2.0-8.3) X10*3/uL Absolute Nucleated RBC 0.000 (0.0-0.012) X10*3/uL Nucleated RBC % (auto) 0.0 (0.0-0.2) /100WBC Sodium 140 (135-145) mmol/L Potassium 4.0 (3.3-5.1) mmol/L Chloride 107 (96-108) mmol/L Carbon Dioxide 25 (22-29) mmol/L Anion Gap 12 (12-20) BUN 8 L (9-16) mg/dL Creatinine 0.90 (0.5-1.4) mg/dL Estim Creat Clear Calc 168.9 Estimated GFR > 60 Random Glucose 116 H (60-115) mg/dL Calcium 9.6 (8.4-10.2) mg/dL Magnesium 2.1 (1.6-2.6) mg/dL Total Bilirubin 0.7 (0.0-1.0) mg/dL AST 21 (5-37) U/L ALT 41 H (0-40) U/L Alkaline Phosphatase 56 (39-117) U/L Total Creatine Kinase 203 H (38-174) U/L Total Protein 6.7 (6.5-8.0) g/dL Albumin 4.5 (3.5-5.0) g/dL Urine Color YELLOW Urine Appearance CLEAR Urine pH 6.5 (5.0-8.0) Ur Specific Wayne 1.015 (1.005-1.025) Urine Protein NEG (NEG-TRACE) MG/DL Urine Glucose (UA) NEG (NEG) MG/DL Urine Ketones NEG (NEG) MG/DL Urine Blood NEG (NEG) Urine Nitrite NEG (NEG) Ur Leukocyte Esterase NEG (NEG) Urine Opiates Screen (Not Detect) Urine Fentanyl Screen (Not Detect) Ur Barbiturates Screen (Not Detect) Ur Phencyclidine Scrn (Not Detect) Ur Amphetamines Screen (Not Detect) U Benzodiazepines Scrn (Not Detect) Urine Cocaine Screen (Not Detect) U Marijuana (THC) Screen (Not Detect) 03/21/21 Range/Units 12:47 WBC (4.8-10.8) X10*3/uL RBC (4.60-5.80) X10*6/uL Hgb (14.0-18.0) g/dl Hct (42-52) % MCV (80-98) fL MCH (27.0-33.0) pg MCHC (31.0-36.0) g/dl RDW (11.0-16.0) % Plt Count (160-400) X10*3/uL MPV (9.4-12.4) fL Immature Gran % (Auto) (0.0-0.4) % Neut % (Auto) (45-73) % Lymph % (Auto) (20-40) % M[place] % (Auto) (2-11) % Eos % (Auto) (0-4) % Baso % (Auto) (0-2) % Lymph # (Auto) (1.2-4.9) X10*3/uL [place] # (Auto) (0.1-1.2) X10*3/uL Eos # (Auto) (0.0-0.4) X10*3/uL Baso # (Auto) (0.0-0.2) X10*3/uL Abs Immat Gran (auto) (0.00-0.03) X10*3/uL Absolute Neuts (auto) (2.0-8.3) X10*3/uL Absolute Nucleated RBC (0.0-0.012) X10*3/uL Nucleated RBC % (auto) (0.0-0.2) /100WBC Sodium (135-145) mmol/L Potassium (3.3-5.1) mmol/L Chloride (96-108) mmol/L Carbon Dioxide (22-29) mmol/L Anion Gap (12-20) BUN (9-16) mg/dL Creatinine (0.5-1.4) mg/dL Estim Creat Clear Calc Estimated GFR Random Glucose (60-115) mg/dL Calcium (8.4-10.2) mg/dL Magnesium (1.6-2.6) mg/dL Total Bilirubin (0.0-1.0) mg/dL AST (5-37) U/L ALT (0-40) U/L Alkaline Phosphatase (39-117) U/L Total Creatine Kinase (38-174) U/L Total Protein (6.5-8.0) g/dL Albumin (3.5-5.0) g/dL Urine Color Urine Appearance Urine pH (5.0-8.0) Ur Specific Wayne (1.005-1.025) Urine Protein (NEG-TRACE) MG/DL Urine Glucose (UA) (NEG) MG/DL Urine Ketones (NEG) MG/DL Urine Blood (NEG) Urine Nitrite (NEG) Ur Leukocyte Esterase (NEG) Urine Opiates Screen Not Detected (Not Detect) Urine Fentanyl Screen Not Detected (Not Detect) Ur Barbiturates Screen Not Detected (Not Detect) Ur Phencyclidine Scrn Not Detected (Not Detect) Ur Amphetamines Screen Not Detected (Not Detect) U Benzodiazepines Scrn Not Detected (Not Detect) Urine Cocaine Screen Not Detected (Not Detect) U Marijuana (THC) Screen POSITIVE H (Not Detect) Discharge Plan Discharge Clinical Impression: Paresthesia Patient Disposition: Home, Self-Care Instructions: Paresthesia (ED) Additional Instructions: Return to the ED immediately for any slurred speech, facial droop, paralysis of extremities, headache, seizure, chest pain, shortness of breath, abdominal pain, or any other concerning symptoms. Her blood work and imaging came back negative. Please follow-up with neurology. Prescriptions: No Action azithromycin 250 mg tablet See Rx Instructions .ROUTE .COMPLEX Qty: 6 RF: 0 tramadol 50 mg tablet 50 mg PO BID PRN (Reason: pain) Qty: 5 RF: 0 tramadol 50 mg tablet 50 mg PO Q8H PRN (Reason: pain) Qty: 10 RF: 0 cyclobenzaprine 10 mg tablet 10 mg PO TID PRN (Reason: muscle spasm) Qty: 14 RF: 0 Referrals: Javier Florence MD [Physician] - 2 days (Paresthesia. ) Interventions: ED Discharge Assessment Last Done: 03/21/21 14:31 Discharge Date/Time: 03/21/21 14:33 Print Language: Greenlandic
[2021-03-21 12:21] LABS: MANUAL DIFF FLAG NO
[2021-03-21 12:22] LABS: Basophils Absolute Auto 0.1 X10*3/uL (0.0-0.2); Basophils Percent Auto 0.5 % (0-2); Eosinophils Absolute Auto 0.6 X10*3/uL (0.0-0.4); Eosinophils Percent Auto 5.7 % (0-4); Hematocrit 40.7 % (42-52); Hemoglobin 14.1 g/dl (14.0-18.0); Imm Gran Abs Auto 0.02 X10*3/uL (0.00-0.03); Imm Gran Pct Auto 0.2 % (0.0-0.4); Lymphocytes Absolute Auto 3.9 X10*3/uL (1.2-4.9); Lymphocytes Percent Auto 36.3 % (20-40); Mean Corpuscular HGB Conc 34.6 g/dl (31.0-36.0); Mean Corpuscular Hemoglobin 27.6 pg (27.0-33.0); Mean Corpuscular Volume 79.6 fL (80-98); Mean Platelet Volume 9.8 fL (9.4-12.4); Monocytes Absolute Auto 0.6 X10*3/uL (0.1-1.2); Monocytes Percent Auto 5.3 % (2-11); Neutrophils Absolute Auto 5.6 X10*3/uL (2.0-8.3); Platelet Count 251 X10*3/uL (160-400); Red Blood Count 5.11 X10*6/uL (4.60-5.80); Red Cell Distribution Width 13.4 % (11.0-16.0); White Blood Count 10.7 X10*3/uL (4.8-10.8)
[2021-03-21 12:40] LABS: Alanine Aminotransferase 41 U/L (0-40); Albumin Level 4.5 g/dL (3.5-5.0); Alkaline Phosphatase 56 U/L (39-117); Anion Gap 12 (12-20); Aspartate Amino Transferase 21 U/L (5-37); Bilirubin Total 0.7 mg/dL (0.0-1.0); Blood Urea Nitrogen 8 mg/dL (9-16); Calcium 9.6 mg/dL (8.4-10.2); Carbon Dioxide 25 mmol/L (22-29); Chloride 107 mmol/L (96-108); Creatinine Clr Calc Pharmacy 168.9; Estimated Glomerular Filt Rate > 60; Glucose Random 116 mg/dL (60-115); Magnesium 2.1 mg/dL (1.6-2.6); Sodium 140 mmol/L (135-145); Total Protein 6.7 g/dL (6.5-8.0)
[2021-03-21 12:54] LABS: Appearance Urine CLEAR; Color Urine YELLOW; Glucose Urine UA NEG (NEG); Leukocyte Esterase Urine NEG (NEG); Nitrite Urine NEG (NEG); PH 6.5 (5.0-8.0); Specific Gravity - Urine 1.015 (1.005-1.025); Urine Blood NEG (NEG); Urine Ketones NEG (NEG); Urine Protein NEG (NEG-TRACE)
[2021-03-21 13:06] LABS: Amphetamine Screen Urine Not Detected (Not Detect); Barbiturates, Urine Not Detected (Not Detect); Benzodiazepines Screen Urine Not Detected (Not Detect); Cannabinoid Screen Urine POSITIVE (Not Detect); Cocaine Screen Urine Not Detected (Not Detect); Fentanyl, urine Not Detected (Not Detect); Opiate Screen Urine Not Detected (Not Detect); Phencyclidine Screen Urine Not Detected (Not Detect)
== END 2021-03-21 14:33 | disposition home or self-care (01) ==
PROVIDERS: Physician Assistant; Emergency Provider Emergency Medicine Emergency Medical Services
DX: R20.2 Paresthesia of skin (principal); M25.522 Pain in left elbow; M25.521 Pain in right elbow; R51.9 Headache, unspecified; F12.90 Cannabis use, unspecified, uncomplicated; F17.200 Nicotine dependence, unspecified, uncomplicated; Z71.6 Tobacco abuse counseling; Z79.899 Other long term (current) drug therapy
CPT/HCPCS: 36415; 70450; 73080; 80053; 80307; 81003; 82550; 83735; 85025; 99284

== ENCOUNTER 2021-07-07 21:21 | Emergency (ER) | payer OTHER, SELFPAY ==
--- NOTE | ~2021-07-07 | XR_ITS ---
EXAMINATION: XR KNEE, LEFT CLINICAL INFORMATION: Injury to the knee. COMPARISON: None TECHNIQUE: Two views of the left knee. FINDINGS: No acute abnormality. No fracture or dislocation. No joint effusion. Femoral tibial and patellofemoral joints are normal. Rounded radiolucency with osteosclerotic margins in the mid waist of the patella at the medial side of the bone. This is a benign lesion. (May be related to prior orthopedic intervention, ghost track. Clinically correlate.) XR/XR knee LT 2V IMPRESSION: No acute abnormality of knee.
[2021-07-07 21:39] VITALS: BP 127/58; PULSE 80; RESP 18; TEMP 36.8; O2SAT 97; BMI 39.0
[2021-07-07] MEDS: Acetaminophen 325 MG TABLET 650 MG PO (21:45)
[2021-07-07 23:17] VITALS: BP 116/57; PULSE 79; RESP 15; TEMP 36; O2SAT 95
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
[2021-07-08] MEDS: Cyclobenzaprine HCl 10 MG TABLET PO (00:19)
== END 2021-07-08 00:23 | disposition home or self-care (01) ==
PROVIDERS: Emergency Provider Emergency Medicine
DX: S13.4XXA Sprain of ligaments of cervical spine, initial encounter (principal); S80.02XA Contusion of left knee, initial encounter; V47.6XXA Car passenger injured in collision with fixed or stationary object in traffic accident, initial encounter; Y93.89 Activity, other specified; Y92.414 Local residential or business street as the place of occurrence of the external cause; Y99.9 Unspecified external cause status; F17.200 Nicotine dependence, unspecified, uncomplicated; F12.90 Cannabis use, unspecified, uncomplicated
CPT/HCPCS: 73560; 99283

== ENCOUNTER 2021-08-22 23:49 | Emergency (ER) | payer OTHER, SELFPAY ==
[2021-08-23 00:12] VITALS: BP 126/64; PULSE 76; RESP 18; TEMP 36.4; O2SAT 98; BMI 37.3
--- NOTE | 2021-08-23 01:00 | ED.NAVMDI ---
HPI - Nausea/Vomiting/Diarrhea General Chief complaint: Abdominal Pain Stated complaint: food poisoning Time Seen by Provider: 08/23/21 00:42 Source: patient Mode of arrival: ambulatory Limitations: no limitations History of Present Illness HPI Narrative: Patient comes to emergency room complaining of 7 episodes of vomiting and diarrhea in the last 7 hours. Patient had not taken any medication. Patient went to [facility], states she went with a family member, no one else got sick except the patient Related Data Previous Rx's Medication Instructions Recorded tramadol 50 mg tablet 50 mg PO Q8H PRN #10 tab 07/17/20 cyclobenzaprine 10 mg tablet 10 mg PO TID PRN #14 tab 08/05/20 azithromycin 250 mg tablet See Rx Instructions .ROUTE 08/20/20 .COMPLEX #6 tab tramadol 50 mg tablet 50 mg PO BID PRN #5 tab 01/16/21 cyclobenzaprine 10 mg tablet 10 mg PO TID PRN #7 tab 07/07/21 loperamide 2 mg tablet 2 mg PO Q6H PRN #10 tab 08/23/21 ondansetron HCl 4 mg tablet 4 mg PO Q6H PRN #10 tab 08/23/21 Allergies Allergy/AdvReac Type Severity Reaction Status Date / Time amoxicillin [AMOXICILLIN] Allergy Mild Rash Verified 07/07/21 21:39 ibuprofen [IBUPROFEN] Allergy Mild RASH Verified 07/07/21 21:39 morphine Allergy Mild rashes Verified 07/07/21 21:39 Penicillins [PENICILLINS] Allergy Mild Rash Verified 07/07/21 21:39 Review of Systems Review of Systems: Constitutional : No Weight loss, No Fever, No Chills, No Night Sweats, No Fatigue, No Malaise ENT/Mouth : No Hearing loss, No Ear Pain, No Nasal Congestion, No Sinus Pain, No Hoarseness, No sore throat, No Rhinorrhea, No Swallowing Difficulty Eyes: No Eye Pain, No Swelling, No Redness, No Foreign Body, No Discharge, No Vision Changes Cardiovascular : No Chest Pain, No SOB, No Dyspnea on Exertion, No Orthopnea, No Edema, No Palpitations Respiratory : No Cough, No Sputum, No Wheezing, No Smoke Exposure, No Dyspnea Gastrointestinal : Nausea vomiting and diarrhea, No Constipation, chronic abdominal pain for 2 months, No Hematochezia, No Melena Genitourinary : no irregular bleeding, No Dysuria, No Urinary Frequency, No Hematuria, No Urinary Incontinence, No Urgency, No Flank Pain, No Urinary Flow Changes, No Hesitancy Musculoskeletal : No joint pain, No Myalgias, No Joint Swelling Skin : No Skin Lesions, No rash Neuro : No Weakness, No Numbness, No Paresthesias, No Loss of Consciousness, No Dizziness, No Headache Psych : No Anxiety/Panic, No Depression, No SI/HI/AH/VH, No Social Issues, Heme/Lymph: No Bruising, No Bleeding,No Lymphadenopathy Endocrine : No Polyuria, No Polydipsia, No Temperature Intolerance [facility] Past Medical History Surgical History History of back surgery History of knee surgery S/P ACL repair Family History Family History Mother No problems noted. Father No problems noted. 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 Oriented X3. No acute distress. Eyes: Pupils equal, round and reactive to light. ENT: Pharynx normal. Neck: Normal inspection. Neck supple. No lymph nodes noted. No crepitus CVS: Normal heart rate and rhythm. Pulses normal. Normal S1 and S2 Respiratory: No respiratory distress. Breath sounds normal. No Wheezing. No rales Abdomen: Soft and nontender. No rigidity. No distention. Skin: Skin warm and dry. Normal skin color. Normal skin turgor. Extremities: No lower extremity edema. No lower extremity edema. No Lacerations. No Rash Neuro: Oriented X 3. No motor deficit. No sensory deficit. Moving all extermities. No slurred speech. Course Course Course Narrative: Patient was given IV fluids, Zofran, loperamide. Patient passes p.o. challenge. Patient ready for discharge MDM - Nausea/Vomiting/Diarrhea Lab Data Result diagrams: 08/23/21 03:00 08/23/21 02:18 Labs: Lab Results 08/23/21 08/23/21 08/23/21 Range/Units 02:18 02:18 03:00 WBC 14.8 H (4.8-10.8) X10*3/uL RBC 5.36 (4.60-5.80) X10*6/uL Hgb 14.8 (14.0-18.0) g/dl Hct 42.9 (42.0-52.0) % MCV 80.0 (80.0-98.0) fL MCH 27.6 (27.0-33.0) pg MCHC 34.5 (31.0-36.0) g/dl RDW 13.7 (11.0-16.0) % Plt Count 225 (160-400) X10*3/uL MPV 9.9 (9.4-12.4) fL Immature Gran % (Auto) 0.3 (0.0-0.4) % Neut % (Auto) 89.0 H (45-73) % Lymph % (Auto) 5.0 L (20-40) % Cross % (Auto) 4.5 (2-11) % Eos % (Auto) 1.1 (0-4) % Baso % (Auto) 0.1 (0-2) % Lymph # (Auto) 0.7 L (1.2-4.9) X10*3/uL Cross # (Auto) 0.7 (0.1-1.2) X10*3/uL Eos # (Auto) 0.2 (0.0-0.4) X10*3/uL Baso # (Auto) 0.0 (0.0-0.2) X10*3/uL Abs Immat Gran (auto) 0.05 H (0.00-0.03) X10*3/uL Absolute Neuts (auto) 13.2 H (2.0-8.3) x10*3/uL Absolute Nucleated RBC 0.000 (0.0-0.012) X10*3/uL Nucleated RBC % (auto) 0.0 (0.0-0.2) /100WBC Sodium 142 (135-145) mmol/L Potassium 4.3 (3.3-5.1) mmol/L Chloride 107 (96-108) mmol/L Carbon Dioxide 24 (22-29) mmol/L Anion Gap 15 (12-20) BUN 15 (9-16) mg/dL Creatinine 1.01 (0.5-1.4) mg/dL Estim Creat Clear Calc 147.7 Estimated GFR > 60 Random Glucose 119 H (60-115) mg/dL Calcium 10.0 (8.4-10.2) mg/dL Total Bilirubin 1.9 H (0.0-1.0) mg/dL Direct Bilirubin 0.7 H (0.0-0.5) mg/dL AST 18 (5-37) U/L ALT 27 (0-40) U/L Alkaline Phosphatase 75 D (39-117) U/L Total Protein 7.4 (6.5-8.0) g/dL Albumin 4.9 (3.5-5.0) g/dL Lipase 18 (8-78) U/L Ethyl Alcohol < 10 mg/dL Discharge Plan Discharge Clinical Impression: Abdominal pain, vomiting, and diarrhea Patient Disposition: Home, Self-Care Instructions: Acute Nausea and Vomiting (ED), Acute Diarrhea (ED) Additional Instructions: Please follow-up with your primary care physician tomorrow. If you have any worsening or new symptoms, please return to the emergency room or call 911 Prescriptions: New loperamide 2 mg tablet 2 mg PO Q6H PRN (Reason: loose stool) Qty: 10 0RF ondansetron HCl 4 mg tablet 4 mg PO Q6H PRN (Reason: nausea and vomiting) Qty: 10 0RF No Action azithromycin 250 mg tablet See Rx Instructions .ROUTE .COMPLEX Qty: 6 0RF Rx Instructions: take 500 mg today (day 1), then 250 mg for 4 days (days 2-5) tramadol 50 mg tablet 50 mg PO BID PRN (Reason: pain) Qty: 5 0RF tramadol 50 mg tablet 50 mg PO Q8H PRN (Reason: pain) Qty: 10 0RF cyclobenzaprine 10 mg tablet 10 mg PO TID PRN (Reason: muscle spasm) Qty: 14 0RF cyclobenzaprine 10 mg tablet 10 mg PO TID PRN (Reason: muscle spasm) Qty: 7 0RF
[2021-08-23] MEDS: Loperamide HCl 2 MG CAPSULE 4 MG PO (02:18)
[2021-08-23] MEDS: ondansetron HCL 4 MG/2 ML VIAL IVPUSH (02:38)
[2021-08-23] MEDS: 0.9 % Sodium Chloride 1,000 ML 999 ML IVCONT (02:40)
[2021-08-23 02:56] LABS: Ethanol < 10 mg/dL
[2021-08-23 03:03] LABS: Alanine Aminotransferase 27 U/L (0-40); Albumin Level 4.9 g/dL (3.5-5.0); Alkaline Phosphatase 75 U/L (39-117); Anion Gap 15 (12-20); Aspartate Amino Transferase 18 U/L (5-37); Bilirubin Direct 0.7 mg/dL (0.0-0.5); Bilirubin Total 1.9 mg/dL (0.0-1.0); Blood Urea Nitrogen 15 mg/dL (9-16); Carbon Dioxide 24 mmol/L (22-29); Chloride 107 mmol/L (96-108); Creatinine Clr Calc Pharmacy 147.7; Estimated Glomerular Filt Rate > 60; Glucose Random 119 mg/dL (60-115); Lipase 18 U/L (8-78); Potassium 4.3 mmol/L (3.3-5.1); Sodium 142 mmol/L (135-145); Total Protein 7.4 g/dL (6.5-8.0)
[2021-08-23 03:05] LABS: Basophils Percent Auto 0.1 % (0-2); Eosinophils Absolute Auto 0.2 X10*3/uL (0.0-0.4); Eosinophils Percent Auto 1.1 % (0-4); Hematocrit 42.9 % (42.0-52.0); Hemoglobin 14.8 g/dl (14.0-18.0); Imm Gran Abs Auto 0.05 X10*3/uL (0.00-0.03); Imm Gran Pct Auto 0.3 % (0.0-0.4); Lymphocytes Absolute Auto 0.7 X10*3/uL (1.2-4.9); Mean Corpuscular HGB Conc 34.5 g/dl (31.0-36.0); Mean Corpuscular Hemoglobin 27.6 pg (27.0-33.0); Mean Platelet Volume 9.9 fL (9.4-12.4); Monocytes Absolute Auto 0.7 X10*3/uL (0.1-1.2); Monocytes Percent Auto 4.5 % (2-11); Neutrophils Absolute Auto 13.2 x10*3/uL (2.0-8.3); Platelet Count 225 X10*3/uL (160-400); Red Blood Count 5.36 X10*6/uL (4.60-5.80); Red Cell Distribution Width 13.7 % (11.0-16.0); White Blood Count 14.8 X10*3/uL (4.8-10.8)
[2021-08-23 03:08] LABS: MANUAL DIFF FLAG NO
== END 2021-08-23 03:28 | disposition home or self-care (01) ==
PROVIDERS: Emergency Provider Emergency Medicine
DX: A05.9 Bacterial foodborne intoxication, unspecified (principal); R11.2 Nausea with vomiting, unspecified; R19.7 Diarrhea, unspecified; R10.9 Unspecified abdominal pain; F17.200 Nicotine dependence, unspecified, uncomplicated; Z79.899 Other long term (current) drug therapy; Z71.6 Tobacco abuse counseling
CPT/HCPCS: 36415; 80048; 80076; 82077; 83690; 85025; 96360; 96361; 96374; 96375; 99283; 99284; J2405

== ENCOUNTER 2023-01-25 19:17 | Emergency (ER) | payer OTHER, SELFPAY ==
--- NOTE | ~2023-01-25 | XR_ITS ---
EXAMINATION: XR ANKLE, RIGHT CLINICAL INFORMATION: Pain. COMPARISON: No similar priors. TECHNIQUE: AP, lateral, and mortise views of the right ankle. FINDINGS: Mildly displaced fracture of the distal fibula/lateral malleolus. Small osseous fragments along the posterior surface of the tibial plafond on the lateral view suspicious for a posterior malleolar fracture. Asymmetric widening of the medial clear space of the ankle mortise suggesting unstable injury. Significant soft tissue thickening. No unexpected radiopaque foreign bodies. XR/XR ankle RT min 3V IMPRESSION: 1. Mildly displaced fracture of the distal fibula/lateral malleolus. 2. Suspect posterior malleolar fracture. 3. Asymmetric widening of the ankle mortise. Recommend additional images of the proximal right tibia/fibula and right knee as additional injuries are likely to be present in the context of these malleolar fractures.
[2023-01-25 19:58] VITALS: BP 112/59; BP 168/52; PULSE 72; PULSE 93; RESP 97; TEMP 36.8; O2SAT 97; BMI 37.3
--- NOTE | 2023-01-25 20:00 | ED.GENADULT ---
HPI - General Adult General Chief complaint: Extremity Injury, Lower Stated complaint: ANKLE PAIN, FALL Time Seen by Provider: 01/25/23 21:00 Source: patient Mode of arrival: wheelchair Limitations: no limitations History of Present Illness HPI narrative: Patient comes to the emergency room complaining of right ankle pain. Patient states that earlier today he was cooking, states that his body went one way, foot when the other way, slipped and fell. Patient states that he did not have any other injuries, denies head injuries or being on blood thinners. Patient unable to bear weight due to pain. Related Data Previous Rx's Medication Instructions Recorded tramadol 50 mg tablet 50 mg PO Q8H PRN pain #10 tabs 07/17/20 cyclobenzaprine 10 mg tablet 10 mg PO TID PRN muscle spasm #14 08/05/20 tabs azithromycin 250 mg tablet See Rx Instructions PO .COMPLEX #6 08/20/20 tabs tramadol 50 mg tablet 50 mg PO BID PRN pain #5 tabs 01/16/21 cyclobenzaprine 10 mg tablet 10 mg PO TID PRN muscle spasm #7 07/07/21 tabs loperamide 2 mg tablet 2 mg PO Q6H PRN loose stool #10 08/23/21 tabs ondansetron HCl 4 mg tablet 4 mg PO Q6H PRN nausea and 08/23/21 vomiting #10 tabs acetaminophen 650 mg 650 mg PO Q8H PRN fever or pain 01/25/23 tablet,extended release #20 tabs tramadol 50 mg tablet 50 mg PO BID PRN pain #7 tabs 01/25/23 Allergies Allergy/AdvReac Type Severity Reaction Status Date / Time amoxicillin [AMOXICILLIN] Allergy Mild Rash Verified 01/25/23 20:06 ibuprofen [IBUPROFEN] Allergy Mild RASH Verified 01/25/23 20:06 morphine Allergy Mild rashes Verified 01/25/23 20:06 Penicillins [PENICILLINS] Allergy Mild Rash Verified 01/25/23 20:06 Review of Systems Review of Systems: Constitutional : No Weight loss, No Fever, No Chills, No Night Sweats, No Fatigue, No Malaise ENT/Mouth : No Hearing loss, No Ear Pain, No Nasal Congestion, No Sinus Pain, No Hoarseness, No sore throat, No Rhinorrhea, No Swallowing Difficulty Eyes: No Eye Pain, No Swelling, No Redness, No Foreign Body, No Discharge, No Vision Changes Cardiovascular : No Chest Pain, No SOB, No Dyspnea on Exertion, No Orthopnea, No Edema, No Palpitations Respiratory : No Cough, No Sputum, No Wheezing, No Smoke Exposure, No Dyspnea Gastrointestinal : No Nausea, No Vomiting, No Diarrhea, No Constipation, No abdominal Pain, No Hematochezia, No Melena Genitourinary : no irregular bleeding, No Dysuria, No Urinary Frequency, No Hematuria, No Urinary Incontinence, No Urgency, No Flank Pain, No Urinary Flow Changes, No Hesitancy Musculoskeletal : Complaining of left ankle pain No Myalgias, No Joint Swelling Skin : No Skin Lesions, No rash Neuro : No Weakness, No Numbness, No Paresthesias, No Loss of Consciousness, No Dizziness, No Headache Psych : No Anxiety/Panic, No Depression, No SI/HI/AH/VH, No Social Issues, Heme/Lymph: No Bruising, No Bleeding,No Lymphadenopathy Endocrine : No Polyuria, No Polydipsia, No Temperature Intolerance [facility] Past Medical History Surgical History History of back surgery History of knee surgery S/P ACL repair Family History Family History Mother No problems noted. Father No problems noted. 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 Oriented X3. No acute distress. Eyes: Pupils equal, round and reactive to light. ENT: Pharynx normal. Neck: Normal inspection. Neck supple. No lymph nodes noted. No crepitus CVS: Normal heart rate and rhythm. Pulses normal. Normal S1 and S2 Respiratory: No respiratory distress. Breath sounds normal. No Wheezing. No rales Abdomen: Soft and nontender. No rigidity. No distention. Skin: Skin warm and dry. Normal skin color. Normal skin turgor. Extremities: No lower extremity edema. There is swelling around the lateral malleolus of the right ankle, pain to palpation around the lateral malleolus. Good pedal pulses present on the right foot Neuro: Alert and oriented x3, cranial nerves 2-12 grossly intact Psych: calm, cooperative, normal affect Course Course Course Narrative: This is an RME: Additional HPI, ROS, PE not included below will be deferred to primary provider. This is a [id number] presenting to the emergency department with a complaint of right ankle pain since today. Was cooking rice and right ankle twisted. He heard a pop. Has been unable to bear weight on right ankle since. Plan: xrays right ankle Medical Decision Making Medical Decision Making [facility] Narrative: -my interpretation of x-ray of the ankle, there is a mildly displaced fracture of the distal fibula -I discussed with the patient the x-ray findings, patient was given a splint and provided with crutches -patient was given 1 dose of IM Toradol Differential Diagnosis Differential Diagnoses: The differential diagnosis associated with the presentation includes (Lateral malleolus fracture, ankle dislocation, contusion, subluxation) Radiology Impression Discussion of test interpretation with radiology: I have reviewed the radiologist's reading. Radiologist Impression: FINDINGS: Mildly displaced fracture of the distal fibula/lateral malleolus. Small osseous fragments along the posterior surface of the tibial plafond on the lateral view suspicious for a posterior malleolar fracture. Asymmetric widening of the medial clear space of the ankle mortise suggesting unstable injury. Significant soft tissue thickening. No unexpected radiopaque foreign bodies.? XR/XR ankle RT min 3V IMPRESSION: 1.? Mildly displaced fracture of the distal fibula/lateral malleolus. 2.? Suspect posterior malleolar fracture. 3.? Asymmetric widening of the ankle mortise. ? Recommend additional images of the proximal right tibia/fibula and right knee as additional injuries are likely to be present in the context of these malleolar fractures. Discharge Plan Discharge Clinical Impression: Fracture of lateral malleolus Patient Disposition: Home, Self-Care Instructions: Ankle Fracture (ED) Additional Instructions: Please follow-up with your primary care physician tomorrow. If you have any worsening or new symptoms, please return to the emergency room or call 911 Prescriptions: New tramadol 50 mg tablet 50 mg PO BID PRN (Reason: pain) Qty: 7 0RF acetaminophen 650 mg tablet extended release 650 mg PO Q8H PRN (Reason: fever or pain) Qty: 20 0RF No Action azithromycin 250 mg tablet See Rx Instructions .ROUTE .COMPLEX Qty: 6 0RF Rx Instructions: take 500 mg today (day 1), then 250 mg for 4 days (days 2-5) tramadol 50 mg tablet 50 mg PO BID PRN (Reason: pain) Qty: 5 0RF tramadol 50 mg tablet 50 mg PO Q8H PRN (Reason: pain) Qty: 10 0RF cyclobenzaprine 10 mg tablet 10 mg PO TID PRN (Reason: muscle spasm) Qty: 14 0RF cyclobenzaprine 10 mg tablet 10 mg PO TID PRN (Reason: muscle spasm) Qty: 7 0RF loperamide 2 mg tablet 2 mg PO Q6H PRN (Reason: loose stool) Qty: 10 0RF ondansetron HCl 4 mg tablet 4 mg PO Q6H PRN (Reason: nausea and vomiting) Qty: 10 0RF
[2023-01-25] MEDS: Ketorolac Tromethamine 60 MG/2 ML VIAL IM (22:17)
== END 2023-01-25 22:19 | disposition home or self-care (01) ==
PROVIDERS: Emergency Provider Emergency Medicine
DX: S82.61XA Displaced fracture of lateral malleolus of right fibula, initial encounter for closed fracture (principal); W01.0XXA Fall on same level from slipping, tripping and stumbling without subsequent striking against object, initial encounter; Y93.G3 Activity, cooking and baking; Y92.000 Kitchen of unspecified non-institutional (private) residence as the place of occurrence of the external cause; Y99.9 Unspecified external cause status; Z79.899 Other long term (current) drug therapy; F17.200 Nicotine dependence, unspecified, uncomplicated; Z71.6 Tobacco abuse counseling
CPT/HCPCS: 29515; 73610; 96372; 99283; 99284; J1885

== ENCOUNTER 2023-01-29 21:57 | Emergency (ER) | payer OTHER, SELFPAY ==
[2023-01-29 22:14] VITALS: BP 121/68; PULSE 86; RESP 18; TEMP 36.8; O2SAT 97; BMI 36.3
--- NOTE | 2023-01-30 00:41 | ED.LOWEXIN ---
HPI - Extremity Injury (Lower) General Chief Complaint: Extremity Injury, Lower Stated Complaint: Right ankle pain Revisit Time Seen by Provider: 01/30/23 00:17 Source: patient Mode of arrival: ambulatory History of Present Illness HPI Narrative: 23-year-old male here with recheck after diagnosed with right lower extremity fracture on Monday. Patient states that he can still feel things move . Patient states that he has been keeping the leg elevated and is not applying any weight-bearing. Related Data Previous Rx's Medication Instructions Recorded tramadol 50 mg tablet 50 mg PO Q8H PRN pain #10 tabs 07/17/20 cyclobenzaprine 10 mg tablet 10 mg PO TID PRN muscle spasm #14 08/05/20 tabs azithromycin 250 mg tablet See Rx Instructions PO .COMPLEX #6 08/20/20 tabs tramadol 50 mg tablet 50 mg PO BID PRN pain #5 tabs 01/16/21 cyclobenzaprine 10 mg tablet 10 mg PO TID PRN muscle spasm #7 07/07/21 tabs loperamide 2 mg tablet 2 mg PO Q6H PRN loose stool #10 08/23/21 tabs ondansetron HCl 4 mg tablet 4 mg PO Q6H PRN nausea and 08/23/21 vomiting #10 tabs acetaminophen 650 mg 650 mg PO Q8H PRN fever or pain 01/25/23 tablet,extended release #20 tabs tramadol 50 mg tablet 50 mg PO BID PRN pain #7 tabs 01/25/23 Allergies Allergy/AdvReac Type Severity Reaction Status Date / Time amoxicillin [AMOXICILLIN] Allergy Mild Rash Verified 01/25/23 20:06 ibuprofen [IBUPROFEN] Allergy Mild RASH Verified 01/25/23 20:06 morphine Allergy Mild rashes Verified 01/25/23 20:06 Penicillins [PENICILLINS] Allergy Mild Rash Verified 01/25/23 20:06 Review of Systems Review of Systems: Pertinent positives and negatives as stated in HPI [facility] Past Medical History Source: nursing notes reviewed Surgical History History of back surgery History of knee surgery S/P ACL repair Family History Family History Mother No problems noted. Father No problems noted. 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 GENERAL: Well developed, well nourished, in no acute distress. HEAD: Normocephalic/atraumatic EYES: PERRLA, EOMI LUNGS: Normal breath sounds. No adventitious sounds or accessory muscle use. CARDIOVASCULAR: Regular rate and rhythm without noted murmurs ABDOMEN: Soft, non-tender, non-distended with bowel sounds. RIGHT LOWER EXTREMITY: Posterior splint noted to be in place, re-evaluation of proximal fibular head without point tenderness, foot is warm, good capillary refill, palpable DP. NEUROLOGIC: Alert and oriented x 4. Strength and sensation to light touch were grossly intact x 4. Medical Decision Making Medical Decision Making MDM Narrative: 23-year-old male with history and clinical presentation, I reviewed the imaging studies from his initial visit which appears to be consistent with a version of trimalleolar fracture. I suspect that patient's pain despite elevation and nonweightbearing is due to absence of splinting for lateral motion, at this time we will apply additional splinting in the version of a stirrup, he will still be given instructions on nonweightbearing, constant elevation and application of ice for 10-15 minutes. He was also strongly encouraged to reach out to the orthopedic office again Monday morning. There is no need to repeat imaging studies as patient is not sustained any additional falls or injury to the right lower extremity. Differential Diagnosis Differential Diagnoses: The differential diagnosis associated with the presentation includes Please see the discussion above Admission/Observation Consideration of admission/observation: Escalation of care including admission/observation considered Please see the discussion above Discharge Plan Discharge Clinical Impression: Ankle fracture, right Patient Disposition: Home, Self-Care Instructions: Leg Fracture (ED) Additional Instructions: 1. Resume all home medications as prescribed. 2. You should be keeping the right lower extremity elevated at all times. No weight-bearing, ever. Apply ice for 10 and 15 minutes, 3 to 4 times a day. 3. Recommend calling the orthopedic office again in the morning on Monday. Return to the ER for any worsening symptoms. Prescriptions: No Action azithromycin 250 mg tablet See Rx Instructions .ROUTE .COMPLEX Qty: 6 0RF Rx Instructions: take 500 mg today (day 1), then 250 mg for 4 days (days 2-5) tramadol 50 mg tablet 50 mg PO BID PRN (Reason: pain) Qty: 5 0RF tramadol 50 mg tablet 50 mg PO Q8H PRN (Reason: pain) Qty: 10 0RF cyclobenzaprine 10 mg tablet 10 mg PO TID PRN (Reason: muscle spasm) Qty: 14 0RF cyclobenzaprine 10 mg tablet 10 mg PO TID PRN (Reason: muscle spasm) Qty: 7 0RF loperamide 2 mg tablet 2 mg PO Q6H PRN (Reason: loose stool) Qty: 10 0RF ondansetron HCl 4 mg tablet 4 mg PO Q6H PRN (Reason: nausea and vomiting) Qty: 10 0RF tramadol 50 mg tablet 50 mg PO BID PRN (Reason: pain) Qty: 7 0RF acetaminophen 650 mg tablet extended release 650 mg PO Q8H PRN (Reason: fever or pain) Qty: 20 0RF Referrals: Florentin Patel MD [Physician] -
[2023-01-30] MEDS: Acetaminophen 325 MG TABLET 975 MG PO (00:55)
--- NOTE | 2023-01-30 01:01 | MHC.EDTECH ---
This tech was asked by to add a sugar tongue splint to patients right leg, patient came in with a posterior splint already on from a previous shift. Patient tolerated procedure well, and provider checked for placement.
[2023-01-30 01:29] VITALS: BP 126/72; PULSE 68; RESP 16; O2SAT 98
== END 2023-01-30 01:05 | disposition home or self-care (01) ==
PROVIDERS: Emergency Provider Student in an Organized Health Care Education/Training Program
DX: M25.571 Pain in right ankle and joints of right foot (principal); S82.891D Other fracture of right lower leg, subsequent encounter for closed fracture with routine healing; X58.XXXD Exposure to other specified factors, subsequent encounter
CPT/HCPCS: 99283; 99284

== ENCOUNTER 2023-02-01 14:50 | Outpatient (AMB) | payer OTHER, SELFPAY ==
[2023-02-01 14:56] VITALS: BMI 36.3
--- NOTE | 2023-02-01 14:56 | A.OFFVIS_ITS ---
Intake Vital Signs 02/01/23 14:56 Height 5 ft 11 in Weight 260 lb BMI 36.3 Intake Visit Reasons: ED follow up Intake Note: Navdeep a 23 year old male who presents today for an ER follow up of right ankle, DOI 01/25/23. Patient reports his body twisted while his foot stayed in place. He presented [place] [facility] the same day due to swelling and pain. Currently has constant pain with a pain level 10 out of 10. Numbness and tingling in ankle and foot. At times his pain will at times radiate up to his knee. No relief with Tylenol or tramadol that was prescribed by ER. Allergies amoxicillin [AMOXICILLIN] Allergy (Mild, Verified 02/01/23 15:15) Rash ibuprofen [IBUPROFEN] Allergy (Mild, Verified 02/01/23 15:15) RASH morphine Allergy (Mild, Verified 02/01/23 15:15) rashes Penicillins [PENICILLINS] Allergy (Mild, Verified 02/01/23 15:15) Rash HPI ED follow up HPI Details 23-year-old male who presents to the office today for an ER follow-up of right ankle pain s/p twisting his ankle while his foot stayed in place, about 1 week ago. He states he has constant pain in his ankle which radiates up to his knee. He rates the pain as 10 on the scale of 0-10. He also c/o numbness and tingling in his ankle and foot. [facility] Surgical History History of back surgery History of knee surgery S/P ACL repair Family History Mother No problems noted. Father No problems noted. Social History (Updated 02/01/23 @ 15:06 by Daksha Ballesteros Mesfin) Alcohol intake: never Patient Tobacco Use Status: Former Tobacco user Substance Use Type: Marijuana Current occupational status: unemployed Current occupation: right handed Review of Systems Const All systems reviewed & are unremarkable except as noted in HPI and below Physical Exam Vital Signs: BMI result Body Mass Index 36.3 Const General: cooperative, healthy appearing, comfortable, no acute distress, well developed and alert Orientation/consciousness: patient oriented x3 HEENT Head: Yes normal to inspection, Yes normocephalic and Yes atraumatic Eyes General: appearance normal, both eyes and all related structures Neck Neck: Yes normal visual inspection and Yes no lymphadenopathy Resp Effort & Inspection: normal respiratory effort and able to speak in complete sentences Cardio Rate: regular rate Peripheral pulses: Peripheral pulses 2+ throughout GI Inspection: Yes normal to inspection Palpation (GI): Soft to palpation Skin General skin exam: no rashes or lesions noted Neuro General: patient oriented x3 Extrem Other: Right ankle: Skin intact. There is diffused swelling throughout the ankle and into the foot with significant tenderness over the lateral malleolus extending in to the syndesmosis. NVI. Psych Appearance: grossly normal Mental Status: mental status grossly normal Office Procedures Casting/Splints [id number] Leg splint application Procedure code (CPT) selection complete Results Reviewed Results Reviewed: X-rays of the right ankle obtained in the ED on January 25 show a distal fibular fracture with disruption of the syndesmosis. Assessment & Plan Assessment & Plan (1) Ankle fracture, right: Code(s): S82.891A - Other fracture of right lower leg, initial encounter for closed fracture Plan I discussed the case with Dr. Patel. I discussed the extent of the injury to the patient and options available. Given the extent of the fracture pattern and high risk of further displacement, it is recommended that we surgically fix this to help with stability and restoring anatomy. I explained to the patient the procedure in detail along with the risks, benefits and alternatives. Risks including but not limited to infection, wound breakdown, stiffness, ongoing pain, nonunion or malunion, and possible complications with hardware. He does understand all this and would like to proceed with open reduction internal fixation of the right ankle with Dr. Patel. He will be booked accordingly. Medications: New [Kneeling Scooter] As directed 1 ea 0RF right ankle fracture S82.891A - Other fracture of right lower leg, initial encounter for closed fracture Patient Instructions: Scribed for Ankur Perez PA-C, by Jose Estrada medical laboratory technologist, on 02/01/2023 at 2:45 PM VAL. Ankur Acevedo PA-C, have personally reviewed and agree with the information entered by the scribe. Coding Level of Care Code New Pt Level 4 (65798) Diagnoses Ankle fracture, right S82.891A CPT Codes Splint - CPT: 97604-[id number] Leg splint application ([id number])
== END 2023-02-09 15:14 | disposition home or self-care (01) ==
PROVIDERS: Visit Provider Physician Assistant
DX: S82.891A Other fracture of right lower leg, initial encounter for closed fracture (principal); S82.61XA Displaced fracture of lateral malleolus of right fibula, initial encounter for closed fracture
CPT/HCPCS: 29515; 99214

== ENCOUNTER → 2023-02-01 14:50 | Outpatient (BNVA) | payer OTHER, SELFPAY | PROVIDERS: Visit Provider Physician Assistant | DX: S82.891A Other fracture of right lower leg, initial encounter for closed fracture (principal) | CPT/HCPCS: 29515 ==

== ENCOUNTER 2023-02-08 10:03 | Day surgery (SDC) | payer OTHER, SELFPAY ==
--- NOTE | 2023-02-07 08:48 | HO.ANESPROP2 ---
Documented by User: Lydia Fuentes NP 02/07/23 08:48 HPI - Anesthesia Eval Consult details Narrative: 23yo M for Right Ankle Fracture ORIF PMF Active Problems Active Problems: All Active Problems (Updated 01/31/23 @ 00:01 by Davey Shine) Fracture of base of third metacarpal bone of right hand (Acute) Right hand pain (Acute) Past Medical History Medical History (Updated 02/08/23 @ 10:16 by Toña Trevino, RN) No pertinent past medical history Family History Family History Mother No problems noted. Father No problems noted. Surgical History Surgical History (Updated 02/08/23 @ 10:16 by Toña Trevino, RN) History of back surgery S/P ACL repair Social History Social History (Updated 02/01/23 @ 15:06 by Daksha Ballesteros Mesfin) Alcohol intake: never Patient Tobacco Use Status: Former Tobacco user Quit Date: 1 1/2 yrs ago Use of substances other than those prescribed or required for medical reasons: Yes Substance Use Type: Marijuana Substance Use Type Other:: last 1 week ago Substance Use Frequency: Occasionally Are you DNR?: No Advance Directives: No Advance Directives Information Provided: Yes Current occupational status: unemployed Current occupation: right handed Meds Allergies Allergy/AdvReac Type Severity Reaction Status Date / Time amoxicillin [AMOXICILLIN] Allergy Mild Rash Verified 02/01/23 15:15 ibuprofen [IBUPROFEN] Allergy Mild RASH Verified 02/01/23 15:15 morphine Allergy Mild rashes Verified 02/01/23 15:15 Penicillins [PENICILLINS] Allergy Mild Rash Verified 02/01/23 15:15 Exam Exam Date and Time: February 07, 2023 0848 Assessment and Plan Assessment Anesthesia Assessment: Chart Reviewed Documented by User: Juan Barton MD 02/08/23 11:07 PMFSH Past Medical History Medical History (Updated 02/08/23 @ 10:16 by Toña Trevino RN) No pertinent past medical history Family History Family History Mother No problems noted. Father No problems noted. Family history of problems with anesthesia: No Surgical History Surgical History (Updated 02/08/23 @ 10:16 by Toña Trevino RN) History of back surgery S/P ACL repair History of Problems with Anesthesia: No Social History Social History (Updated 02/01/23 @ 15:06 by Daksha Ballesteros Mesfin) Alcohol intake: never Patient Tobacco Use Status: Former Tobacco user Quit Date: 1 1/2 yrs ago Use of substances other than those prescribed or required for medical reasons: Yes Substance Use Type: Marijuana Substance Use Type Other:: last 1 week ago Substance Use Frequency: Occasionally Are you DNR?: No Advance Directives: No Advance Directives Information Provided: Yes Current occupational status: unemployed Current occupation: right handed Meds Allergies Allergy/AdvReac Type Severity Reaction Status Date / Time amoxicillin [AMOXICILLIN] Allergy Mild Rash Verified 02/01/23 15:15 ibuprofen [IBUPROFEN] Allergy Mild RASH Verified 02/01/23 15:15 morphine Allergy Mild rashes Verified 02/01/23 15:15 Penicillins [PENICILLINS] Allergy Mild Rash Verified 02/01/23 15:15 Exam Airway Mallampati Class: I TM Dist: >3cm Neck ROM: Full Loose/Missing/Broken Teeth: No Heart: ok Lungs: ok Assessment and Plan Assessment Anesthesia Assessment: Anesthesia Plan Discussed Final Anesthetic Review Family History of Problems with Anesthesia: No History of Problems with Anesthesia: No NPO: Yes ASA Class: II Final Preanesthetic Review: No Changes in Pt Med Stat, Meds/Allgs Chart Reviewed, Consent Obtained/Reviewed and Anes Risks/Benef Reviewed Patient Risk: Intermediate Procedure Risk: Low Anesthetic Plan Anesthetic Plan: GA and Regional Block Disposition: Standard PACU
--- NOTE | ~2023-02-08 | FL_ITS ---
EXAMINATION: XR FLUOROSCOPY WITH IMAGES CLINICAL INFORMATION: Right ankle ORIF. COMPARISON: None available. TECHNIQUE: Fluoroscopy Supervised By: Dr. Jorge Lerma.. Fluoroscopy Time: 0.1 minute. Cumulative Dose: 0.731 mGy. DAP: 0.0126 Gycm2. Images: 2. FINDINGS: There are 2 digital images the distal tibia and fibula with lateral fibular plate and screws stabilizing fibular fracture. There is distal tibial and fibula is embolized with a solitary translucent screw. The ankle mortises intact. The soft tissues are normal. FL/FL guidance in OR IMPRESSION: Stabilized distal fibular fracture with hardware as described above.
[2023-02-08 10:17] VITALS: BMI 37.0
[2023-02-08 10:35] VITALS: BP 130/74; PULSE 82; RESP 15; TEMP 36; O2SAT 97
[2023-02-08] MEDS: Lactated Ringers 1,000 ML 100 ML IVCONT (10:39)
--- NOTE | 2023-02-08 11:46 | MHC.SHP ---
Pre-Procedural Eval Section A Date of Service: 02/08/23 The patient is an INPATIENT: No Changes since office visit: No Cold of Flu in the past 2 weeks, No New Medical Problems, No Changes in Medication and No Patient answered all questions The History & Physical has been completed within 30 days and I have reviewed it.: Yes Section B Chief Complaint: Pathological fracture, right ankle, initial encoun Allergies: Allergies Allergy/AdvReac Type Severity Reaction Status Date / Time amoxicillin [AMOXICILLIN] Allergy Mild Rash Verified 02/01/23 15:15 ibuprofen [IBUPROFEN] Allergy Mild RASH Verified 02/01/23 15:15 morphine Allergy Mild rashes Verified 02/01/23 15:15 Penicillins [PENICILLINS] Allergy Mild Rash Verified 02/01/23 15:15 Plan I have reviewed the history and physical and performed a pertinent physical examination on my patient. No changes have occurred unless specified. Time Spent With Patient Time: Total time managing care of this patient today ____ minutes.
--- NOTE | 2023-02-08 13:49 | PM.OP ---
Brief Operative Note Date of Service: 02/08/23 Pre-op diagnosis: right ankle fracture Post-op diagnosis: same Procedure: 1) ORIF lateral mal right ankle 2) ORIF syndesmosis right ankle Implants: An[place]ore lateral locking plate Arthrex tightrope Surgeon: Florentin Patel MD Anesthesia: GETA and regional Was an Manager Critical Care Unit used for this Procedure?: Yes Manager Critical Care Unit: Emily Hidalgo Estimated blood loss (mL): 20 Tourniquet time (min): 42 IV fluids (mL): 800 Pathology: none sent Condition: stable Disposition: PACU
[2023-02-08 13:55] VITALS: BP 102/48; PULSE 71; RESP 17; TEMP 36.7; O2SAT 98
[2023-02-08 14:00] VITALS: BP 103/63; PULSE 76; RESP 18; O2SAT 98
[2023-02-08 14:05] VITALS: BP 113/73; PULSE 75; RESP 18; O2SAT 95
[2023-02-08 14:10] VITALS: BP 110/69; PULSE 80; RESP 18; TEMP 36.9; O2SAT 97
--- NOTE | 2023-02-10 15:19 | W.PM.OPN ---
Operative Note Operative Note Date of Service: 02/08/23 Narrative: Date of Service: 02/08/23 Pre-op diagnosis: right ankle fracture Post-op diagnosis: same Procedure: 1) ORIF lateral mal right ankle 2) ORIF syndesmosis right ankle Implants: Amandeep lateral locking plate Arthrex tightrope Surgeon: Florentin Patel MD Anesthesia: GETA and regional Was an Legal Transcriber used for this Procedure?: Yes Legal Transcriber: Emily Hidalgo Estimated blood loss (mL): 20 Tourniquet time (min): 42 IV fluids (mL): 800 Pathology: none sent Condition: stable Disposition: PACU Procedure in detail: Patient was brought to the operating room and placed supine on the operative table. All bony prominences were well padded and a time-out was called to identify proper site proper procedure proper surgeon. IV antibiotics per weight were administered. I began by exsanguinating limb is slightly tourniquet to 300 mm Hg. I then made a standard posterolateral incision over the fibula. Full-thickness flaps were taken down to the fibular shaft and distal fibula. The fracture was identified and cleaned with a combination of curette, rongeur and irrigation. A lobster claw was used to provisionally reduce the fracture and a 6 hole distal fibular locking plate was applied using standard AO technique. Biplanar fluoroscopy was used to confirm hardware position and fracture reduction. Once I was satisfied that both of these were acceptable I irrigated copiously and turned my attention to the syndesmosis. External rotation testing demonstrated medial clear space widening of > 5mm. Therefore a syndesmosis tighrope was placed. A lateral to medial drill at a 20deg superior inclination and parallel to the joint was utilized. The tight rope was then placed and tightened. External rotation stress testing reduced the clear space and I was satisfied with the stability. Therefore all instrumentation was removed and copious irrigation was performed. Absorbable suture and [place] were used for closure and the patient was placed into sterile dressings and a well-padded posterior splint. Tourniquet was let down and the patient was extubated brought to recovery room in stable condition there were no known complications.
== END 2023-02-08 15:04 | disposition home or self-care (01) ==
LOC: HO.SSS 10:05
PROVIDERS: Visit Provider Orthopaedic Surgery
PROC: (CPT 27792; principal; 2023-02-08 12:20)
DX: S82.61XA Displaced fracture of lateral malleolus of right fibula, initial encounter for closed fracture (principal); X50.1XXA Overexertion from prolonged static or awkward postures, initial encounter; Y93.89 Activity, other specified; Y92.9 Unspecified place or not applicable; Y99.8 Other external cause status; R20.0 Anesthesia of skin; R20.2 Paresthesia of skin; Z88.0 Allergy status to penicillin; Z88.1 Allergy status to other antibiotic agents; Z88.8 Allergy status to other drugs, medicaments and biological substances; Z98.890 Other specified postprocedural states; Z87.891 Personal history of nicotine dependence
CPT/HCPCS: 27792; 27829; C1713; J1100; J1885; J2371; J2405; J2795; J3010

== ENCOUNTER → 2023-02-08 10:03 | Outpatient (BNV) | payer OTHER, SELFPAY | PROVIDERS: Visit Provider Orthopaedic Surgery | DX: S82.61XA Displaced fracture of lateral malleolus of right fibula, initial encounter for closed fracture (principal) | CPT/HCPCS: 27792; 27829 ==

== ENCOUNTER 2023-02-13 14:56 | Outpatient (AMB) | payer OTHER, SELFPAY ==
--- NOTE | 2023-02-13 14:58 | A.OFFVIS_ITS ---
Intake Intake Visit Reasons: PO ORIF RT Ankle 02/08/23NE Intake Note: Navdeep is a 23 year old male who presents today for a post operative appointment of the right ankle 02/08/23. Patient reports that he has had significant pain since surgery with little to no relief. He feels that the s plint may be adding to his pain. Splint was removed. Allergies amoxicillin [AMOXICILLIN] Allergy (Mild, Verified 02/13/23 15:02) Rash ibuprofen [IBUPROFEN] Allergy (Mild, Verified 02/13/23 15:02) RASH morphine Allergy (Mild, Verified 02/13/23 15:02) rashes Penicillins [PENICILLINS] Allergy (Mild, Verified 02/13/23 15:02) Rash HPI PO ORIF RT Ankle 02/08/23NE HPI Details Navdeep is a 23 year old man who presents ~5 days S/P right ankle ORIF lateral malleolous & syndesmosis. He complains of pain since his surgery, with little to no relief. He suspects his splint is causing some of his pain today. He denies any fever, chills, or drainage PFSH Medical History No pertinent past medical history Surgical History History of back surgery S/P ACL repair Family History Mother No problems noted. Father No problems noted. Social History Alcohol intake: never Patient Tobacco Use Status: Former Tobacco user Quit Date: 1 1/2 yrs ago Substance Use Type: Marijuana Current occupational status: unemployed Current occupation: right handed Review of Systems Const All systems reviewed & are unremarkable except as noted in HPI and below Physical Exam Const General: no acute distress, alert and awake Orientation/consciousness: patient oriented x3 HEENT Head: Yes normocephalic and Yes atraumatic Eyes EOM: EOMs intact bilaterally Resp Effort & Inspection: normal respiratory effort and able to speak in complete sentences Cardio Jugular venous distension: no JVD Skin General skin exam: turgor normal Rashes: no rashes Neuro General: patient oriented x3 Extrem Other: Right Ankle: Psych Appearance: grossly normal Affect: normal affect Attitude: cooperative Results Reviewed Results Reviewed: inc c/d/i SILT Assessment & Plan Assessment & Plan (1) Fracture of right ankle, lateral malleolus: Code(s): S82.61XA - Displaced fracture of lateral malleolus of right fibula, initial encounter for closed fracture Plan: This is a 23 year old man S/P right ankle ORIF lateral malleolous & syndesmosis, DOS: 02/08/23. His wound looks good. He was fitted for a new splint today and will follow up in 1 week for a wound check and suture removal. Plan Scribed for Florentin Patel MD by Merlin Schwartz, medical physics researcher, on 02/13/23 at 3:15 PM, EST. Coding Level of Care Code Global (64190) Diagnoses Fracture of right ankle, lateral malleolus S82.61XA
== END 2023-02-13 16:11 | disposition home or self-care (01) ==
PROVIDERS: Visit Provider Orthopaedic Surgery
DX: S82.61XA Displaced fracture of lateral malleolus of right fibula, initial encounter for closed fracture (principal)
CPT/HCPCS: 99024

== ENCOUNTER → 2023-02-13 14:56 | Outpatient (BNVA) | payer OTHER, SELFPAY | PROVIDERS: Visit Provider Orthopaedic Surgery ==

== ENCOUNTER 2023-02-20 05:36 | Outpatient (REF) | payer OTHER, SELFPAY ==
--- NOTE | ~2023-02-20 | XR_ITS ---
EXAMINATION: XR ANKLE, RIGHT CLINICAL INFORMATION: Pain in in right ankle and joints of foot. Splint off. COMPARISON: 01/25/2023 TECHNIQUE: AP, lateral, and mortise views of the right ankle. FINDINGS: Status post ORIF previously identified mildly displaced fracture of the distal fibula/lateral malleolus with metallic plate and screws. Hardware appears intact. Transverse lucency in the distal tibia with surgical devices along the medial aspect of the distal tibia and corresponding lateral aspect of the distal fibula. Alignment is near anatomic. Soft tissue swelling at the ankle with joint effusion. XR/XR ankle RT min 3V IMPRESSION: Status post ORIF previously identified mildly displaced fracture of the distal fibula/lateral malleolus. Hardware appears intact. Alignment is near anatomic.
== END 2023-02-20 05:37 | disposition home or self-care (01) ==
LOC: HO.HOSX 05:36
PROVIDERS: Visit Provider Physician Assistant
DX: S82.61XD Displaced fracture of lateral malleolus of right fibula, subsequent encounter for closed fracture with routine healing (principal); X58.XXXD Exposure to other specified factors, subsequent encounter
CPT/HCPCS: 73610

== ENCOUNTER 2023-02-20 10:43 | Outpatient (AMB) | payer OTHER, SELFPAY ==
--- NOTE | 2023-02-20 11:00 | MHC.OFFVIS ---
Intake Vital Signs 02/20/23 11:05 Height 5 ft 11 in Weight 265 lb BMI 37.0 Intake Visit Reasons: PO - Right Ankle ORIF 02/08/2023 Intake Note: Navdeep a 23 year old male who presents today for a post operative right ankle ORIF on 02/08/23 NE. Patient reports pain level is 10 out of 10. He found very minimal relief with elevation. Allergies amoxicillin [AMOXICILLIN] Allergy (Mild, Verified 02/20/23 11:14) Rash ibuprofen [IBUPROFEN] Allergy (Mild, Verified 02/20/23 11:14) RASH morphine Allergy (Mild, Verified 02/20/23 11:14) rashes Penicillins [PENICILLINS] Allergy (Mild, Verified 02/20/23 11:14) Rash HPI PO - Right Ankle ORIF 02/08/2023 HPI Details 23-year-old male who returns to the office today for post-op right ankle ORIF, 02/08/23. He continues to have chronic pain in his ankle and rates the pain as 10 on the scale of 0-10. He had minimal relief with elevation. He has no other concerns. [facility] Medical History No pertinent past medical history Surgical History History of back surgery S/P ACL repair Family History Mother No problems noted. Father No problems noted. Social History Alcohol intake: never Patient Tobacco Use Status: Former Tobacco user Quit Date: 1 1/2 yrs ago Substance Use Type: Marijuana Current occupational status: unemployed Current occupation: right handed Review of Systems Const All systems reviewed & are unremarkable except as noted in HPI and below Physical Exam Vital Signs: BMI result Body Mass Index 37.0 Extrem Other: Right ankle: Incision clean, dry and intact. Yunior are intact. He has trace swelling throughout the ankle and to the foot. Pulses and sensation are intact. Results Reviewed Results Reviewed: X-rays of the right ankle obtained in the office today show orthopedic hardware intact with ankle mortis intact. Assessment & Plan Assessment & Plan (1) Fracture of right ankle, lateral malleolus: Code(s): S82.61XA - Displaced fracture of lateral malleolus of right fibula, initial encounter for closed fracture Plan Sutures removed today, steri strips applied. He was placed in a short leg cast. He will continue non weight bearing for another 4 weeks. I did stress the importance of elevating above heart level to help with swelling. I will give him a refill of oxycodone and Tylenol and he will take Motrin as needed. He will return to see us back in 4 weeks with cast off and new x-rays, sooner if needed. Orders: Orders XR ankle RT min 3V Today M25.571 - Pain in right ankle and joints of right foot Medications: New oxycodone Partial Fill upon patient request. 5 mg PO Q8H PRN 21 tabs 0RF pain 7 days S82.61XA - Displaced fracture of lateral malleolus of right fibula, initial encounter for closed fracture acetaminophen 650 mg (2 x 325 mg) PO Q4-6H PRN 240 tabs 3RF fever or pain 30 days Patient Instructions: Scribed for Ankur Perez PA-C, by Jose Estrada medical donation professional, on 02/20/2023 at 10:30 AM EST. I, Ankur Perez PA-C, have personally reviewed and agree with the information entered by the scribe. Coding Level of Care Code Global (41640) Diagnoses Fracture of right ankle, lateral malleolus S82.61XA
[2023-02-20 11:05] VITALS: BMI 37.0
== END 2023-02-20 11:56 | disposition home or self-care (01) ==
PROVIDERS: Visit Provider Physician Assistant
DX: S82.61XA Displaced fracture of lateral malleolus of right fibula, initial encounter for closed fracture (principal)
CPT/HCPCS: 99024

== ENCOUNTER 2023-03-22 08:40 | Outpatient (AMB) | payer OTHER, SELFPAY ==
--- NOTE | 2023-03-22 08:43 | A.OFFVIS_ITS ---
Intake Intake Visit Reasons: PO-RT Ankle ORIF 02/08/2023-cast off/w xray Intake Note: Navdeep a 23 year old male who presents today for a post operative right ankle ORIF on 02/08/23 NE. Cast off and xrays updated. Patient reports he is doing much better, states pain has improved. Currently his pain level is 3 out of 10. Allergies amoxicillin [AMOXICILLIN] Allergy (Mild, Verified 03/22/23 09:05) Rash ibuprofen [IBUPROFEN] Allergy (Mild, Verified 03/22/23 09:05) RASH morphine Allergy (Mild, Verified 03/22/23 09:05) rashes Penicillins [PENICILLINS] Allergy (Mild, Verified 03/22/23 09:05) Rash HPI PO-RT Ankle ORIF 02/08/2023-cast off/w xray HPI Details 23-year-old male who returns to the [facility] today for a follow-up of right ankle ORIF, 02/08/23. He continues to have pain in his ankle which is currently improved and rates the pain as 3 on the scale of 0-10. He is doing well otherwise and has no concerns today. [facility] Medical History No pertinent past medical history Surgical History History of back surgery S/P ACL repair Family History Mother No problems noted. Father No problems noted. Social History Alcohol intake: never Patient Tobacco Use Status: Former Tobacco user Quit Date: 1 1/2 yrs ago Substance Use Type: Marijuana Current occupational status: unemployed Current occupation: right handed Review of Systems Const All systems reviewed & are unremarkable except as noted in HPI and below Physical Exam Extrem Other: Right ankle: Incision well healed. No swelling throughout the ankle and to the foot. Pulses and sensation are intact. Results Reviewed Results Reviewed: X-rays of the right ankle obtained in the office today show orthopedic hardware intact with ankle mortis intact. Assessment & Plan Assessment & Plan (1) Fracture of right ankle, lateral malleolus: Code(s): S82.61XA - Displaced fracture of lateral malleolus of right fibula, initial encounter for closed fracture Qualifiers: Encounter type: subsequent encounter Fracture type: closed Fracture alignment: nondisplaced Fracture healing: with routine healing Qualified Code(s): S82.64XD - Nondisplaced fracture of lateral malleolus of right fibula, subsequent encounter for closed fracture with routine healing Plan He was transitioned to off the shelf tall boot weight bearing as tolerated. He needs to wear the boot at all time while ambulating. He can remove for hygiene, resting and sleeping. He will begin physical therapy to work on ROM, gentle strengthening and proprioceptive training. He will see us back in 6 weeks with new x-rays, sooner if needed. Orders: Orders XR ankle RT min 3V Today M25.571 - Pain in right ankle and joints of right foot PT Evaluation and Treatment Today S82.61XA - Displaced fracture of lateral malleolus of right fibula, initial encounter for closed fracture Patient Instructions: Scribed for Ankur Perez PA-C, by Jose Estrada medical reception specialist, on 03/22/2023 at 8:30 AM EST. I, Ankur Perez PA-C, have personally reviewed and agree with the information entered by the scribe. Coding Level of Care Code Global (37020) Diagnoses Closed nondisplaced fracture of lateral malleolus of right fibula with routine healing, subsequent encounter S82.64XD Encounter type: subsequent encounter Fracture type: closed Fracture alignment: nondisplaced Fracture healing: with routine healing
== END 2023-03-22 10:06 | disposition home or self-care (01) ==
PROVIDERS: Visit Provider Physician Assistant
DX: S82.64XD Nondisplaced fracture of lateral malleolus of right fibula, subsequent encounter for closed fracture with routine healing (principal)
CPT/HCPCS: 99024

== ENCOUNTER 2023-03-22 12:38 | Outpatient (REF) | payer OTHER, SELFPAY ==
--- NOTE | ~2023-03-22 | XR_ITS ---
EXAMINATION: XR ANKLE, RIGHT CLINICAL INFORMATION: Pain COMPARISON: January 2023, 01/25/2023 TECHNIQUE: AP, lateral, and mortise views of the right ankle. FINDINGS: Patient is status post ORIF placement for distal fibular fracture. Hardware well-positioned. Fracture line is barely is seen on the lateral view only. Ankle mortise is well maintained. XR/XR ankle RT min 3V IMPRESSION: Interval healing of lateral malleolar fracture with well positioned ORIF.
== END 2023-03-22 12:39 | disposition home or self-care (01) ==
LOC: HO.HOSX 12:38
PROVIDERS: Visit Provider Physician Assistant
DX: S82.64XD Nondisplaced fracture of lateral malleolus of right fibula, subsequent encounter for closed fracture with routine healing (principal)
CPT/HCPCS: 73610

== ENCOUNTER 2023-05-04 11:50 | Outpatient (REF) | payer OTHER, SELFPAY | END 2023-05-04 11:51 | disposition home or self-care (01) | LOC: HO.HOSX 11:50 | PROVIDERS: Visit Provider Physician Assistant | DX: Z13.89 Encounter for screening for other disorder (principal) ==

== ENCOUNTER 2023-05-22 15:00 | Outpatient (RCR) | payer OTHER, SELFPAY ==
--- NOTE | 2023-05-02 15:52 | MHC.PT.EP ---
[facility] [place] [facility] [place] [facility] [place] [facility] [address] Aiden López [address] [phone] F: [phone] F: [phone] F: [phone] F: [phone] Physical Therapy Plan of Care Date of Evaluation: 05/02/23 Date of Surgery: 02/08/23 Diagnosis: displaced fracture of lateral malleolus of right fibula (RL) s/p ORIF and syndesmosis tightrope on 02/08/23 Assessment: pt is a 23 y/o male presenting to physical therapy w/ referring diagnosis of displaced fracture of lateral malleolus of right fibula. He is nearly 12 weeks s/p ORIF for lateral malleolar fracture and syndemosis tightrope repair. Impairments include pain, decreased range of motion, decreased strength, impaired functional mobility, impaired postural awareness, and altered ambulation mechanics. pt is a good candidate for skilled PT due to age, potential remediation of impairments, typical disease/condition progression and prognosis, comorbidities, and motivation. pt would benefit from skilled PT intervention to provide a tailored strengthening and stretching exercise program, functional training, gait training, postural re-training, neuromuscular re-education, modalities as needed for pain, equipment safety demonstration. Frequency and Duration: The patient will be seen 2x/wk for 6 wks Short Term Goals: pt will be I w/ HEP to promote self-management of condition. pt will improve R ankle DF by at least 10 degrees to normalize gait on even ground. Wild Life Photographer Goals: pt will report a statistically significant improvement in self-reported outcome measure, LEFI, to promote return to PLOF. pt will ascend/descend 12 stairs using railing w/ reciprocal pattern to promote ease in accessing his primary living spaces. Treatment Plan: Modalities to reduce pain, spasms and effusion. Manual therapy to restore motion and function. Therapeutic exercise to improve strength and flexibility. Neuromuscular re-education for posture and balance. Therapeutic activities to return to functional activities of daily living. Electronically signed by: Evelin Wellington PT, DPT Please sign and return to therapist. Thank you for your referral.
--- NOTE | 2023-06-29 14:05 | MHC.PT.DC ---
[facility] [place] [facility] [place] Office [place] Office [address] Aiden López [address] [phone] F: [phone] F: [phone] F: [phone] F: [phone] Physical Therapy Discharge Report Diagnosis: displaced fracture of lateral malleolus of right fibula (RL) s/p ORIF and syndesmosis tightrope on 02/08/23 Date of Surgery: 02/08/23 Date of Evaluation: 05/02/23 Date of Discharge: 06/29/23 Treatments to Date: 5 Cancellations to Date: 2 No Shows to Date: 3 Discharge Status: Visit Non-compliance Discharge Summary: The patient has no showed his last three scheduled appointments. Even when he was attending his appointments he was not compliant with the recommendations being made by this therapist. He is discharged from this physical therapy plan of care. His current status is unknown. Electronically signed by: Evelin Wellington PT, DPT Please sign and return to therapist. Thank you for your referral.
== END 2023-06-29 14:05 | disposition home or self-care (01) ==
LOC: HO.PT 15:00
PROVIDERS: Visit Provider Physician Assistant
DX: S82.61XA Displaced fracture of lateral malleolus of right fibula, initial encounter for closed fracture (principal)
CPT/HCPCS: 97110; 97140; 97161; 97530

== ENCOUNTER 2023-08-14 18:07 | Emergency (ER) | payer OTHER, SELFPAY ==
--- NOTE | ~2023-08-14 | CT_ITS ---
EXAMINATION: CT ABDOMEN AND PELVIS WITH CONTRAST CLINICAL INFORMATION: Abdominal pain. COMPARISON: None available. TECHNIQUE: Multidetector volumetric images were obtained from the superior aspect of the liver through the pubic symphysis following administration 85 mL of Omnipaque 350 intravenous contrast. Sagittal and coronal reformatted images were obtained on the technologist's workstation. Oral contrast: No This CT examination was performed using dose optimization techniques as appropriate, variously including the following: *Automated exposure control *Adjustment of mA and/or kV according to patient size (this includes techniques or standardized protocols for targeted exams where dose is matched to indication/reason for exam; i.e. extremities or head) *Use of iterative reconstruction technique DLP: 798 mGy-cm FINDINGS: LUNG BASES: The visualized lung bases are unremarkable. LIVER, GALLBLADDER, AND BILIARY TREE: The liver is normal in size, shape, and attenuation. No focal hepatic lesion or biliary ductal dilatation is present. The gallbladder is unremarkable with no evidence of radiopaque gallstones, gallbladder wall thickening, or obvious pericholecystic inflammatory changes. PANCREAS: Unremarkable. SPLEEN: Unremarkable. ADRENAL GLANDS: Unremarkable. KIDNEYS AND URETERS: The kidneys are normal in size, shape, and attenuation. No hydronephrosis, hydroureter, or calculi seen. No perinephric stranding. BLADDER: Unremarkable. GASTROINTESTINAL TRACT: The small and large bowel are unremarkable. The appendix is unremarkable. ABDOMINAL WALL: No significant hernia is appreciated. LYMPH NODES: Normal. VASCULAR: Unremarkable. PELVIC VISCERA: Unremarkable. OSSEOUS STRUCTURES: Unremarkable. CT/CT abdomen pelvis w IV con IMPRESSION: No significant abnormality. Fleischner guidelines were followed.
--- NOTE | 2023-08-14 19:24 | ED_ITS ---
HPI - Abdominal Pain General Chief Complaint: Abdominal Pain Stated Complaint: abdominal pain, blood in stool Time Seen by Provider: 08/15/23 00:01 Source: patient and family Mode of arrival: ambulatory History of Present Illness HPI narrative: This is a 23-year-old male without significant past medical history who presents with onset of left upper quadrant pain that started today and reports that it goes across his whole upper abdomen with associated nausea but no vomiting and also states that he had a couple episodes of bright red blood mixed with his stool today and was on the toilet paper but no contamination of his underwear, this has never happened previously and he denies being on any prescription medications and denies any frequent alcohol use. Related Data Previous Rx's Medication Instructions Recorded acetaminophen 650 mg 650 mg PO Q8H PRN fever or pain 01/25/23 tablet,extended release #20 tabs Kneeling Scooter #1 ea 02/01/23 oxycodone-acetaminophen 5 mg-325 1 tab PO Q6H PRN pain (scale score 02/08/23 mg tablet (Percocet) 4-6) 7 days #28 tabs acetaminophen 325 mg tablet 650 mg (2 x 325 mg) PO Q4-6H PRN 02/20/23 fever or pain 30 days #240 tabs oxycodone 5 mg tablet 5 mg PO Q8H PRN pain 7 days #21 02/20/23 tabs Allergies Allergy/AdvReac Type Severity Reaction Status Date / Time amoxicillin [AMOXICILLIN] Allergy Mild Rash Verified 08/14/23 19:25 ibuprofen [IBUPROFEN] Allergy Mild RASH Verified 08/14/23 19:25 morphine Allergy Mild rashes Verified 08/14/23 19:25 Penicillins [PENICILLINS] Allergy Mild Rash Verified 08/14/23 19:25 Review of Systems Review of Systems Pertinent positives and negatives as stated in the HPI PMFSH Past Medical History Source: nursing notes reviewed Medical History No pertinent past medical history Surgical History History of back surgery S/P ACL repair Family History Family History Mother No problems noted. Father No problems noted. Social History Social History Alcohol intake: never Patient Tobacco Use Status: Former Tobacco user Quit Date: 1 1/2 yrs ago Smoked in Last 30 Days: Yes Use of substances other than those prescribed or required for medical reasons: Yes Substance Use Type: Marijuana Advance Directives: No Advance Directives Information Provided: Yes Current occupational status: unemployed Current occupation: right handed Physical Exam ED Vital Signs: Vital Signs - 24 hr 08/14/23 19:25 08/15/23 00:02 08/15/23 01:27 Temperature 97.2 F 98.1 F Pulse Rate 82 68 74 Respiratory Rate 16 16 18 Blood Pressure 132/63 105/65 119/78 Pulse Oximetry 98 98 100 Oxygen Delivery Method Room Air Room Air Room Air BMI result Body Mass Index 43.3 VITAL SIGNS: Reviewed. GENERAL: Well developed, well nourished, in no acute distress. HEAD: Normocephalic/atraumatic EYES: PERRLA, EOMI EARS: Ext canals without abnormality NOSE: Nares patent bilateral OROPHARYNX: no oral lesions noted, posterior pharynx clear NECK: Supple, no adenopathy LUNGS: Normal breath sounds. No adventitious sounds or accessory muscle use. SpO2<98> CARDIOVASCULAR: Regular rate and rhythm without noted murmurs ABDOMEN: Soft, tenderness to palpation across entire upper abdomen, non- distended with bowel sounds. 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 EXTREMITIES: No cyanosis, clubbing or edema. SKIN: Inspection of the skin reveals no rashes NEUROLOGIC: Alert and oriented x 4. Strength and sensation to light touch were grossly intact x 4. Course Course Course Narrative: RME: 23 year-old M w/no sig PMHx presenting to the ED c/o LUQ abdominal pain intermittently since 5AM w/bright red bloody BM x2 episodes. Does admit to constipation, nausea, dizziness. Denies rectal pain, taking AC Labs, UA, occult stool ordered Full HPI, ROS and PE to be performed by primary ED provider. Medical Decision Making Medical Decision Making MDM Narrative: 23-year-old male with history and clinical presentation, DDX: Colitis, acute cholecystitis, pancreatitis, gastritis or viral illness, constipation with possible hemorrhoid I reviewed all investigations and hematologic indices do not demonstrate an anemia or thrombocytopenia, there is a slight elevated leukocyte of unclear significance as patient is afebrile. Suspect that this is not infectious reactive. Coagulation studies within normal limits. Chemistry indices grossly within normal limits and there are no noted derangements. Urinalysis negative for UTI or hematuria. Guaiac is negative. CT scan negative for any acute intra-abdominal pathologies. My interpretation is that patient experienced episode of hemorrhoidal bleeding with defecation and there have been no further incidents, otherwise also suspect a component of gastritis. He is otherwise discharged home in stable condition with instructions to follow-up with his primary care doctor. Differential Diagnosis Differential Diagnoses: The differential diagnosis associated with the presentation includes Please see the discussion above Admission/Observation Consideration of admission/observation: Escalation of care including admission/observation considered Please see the discussion above Lab Data MDM Lab Attestation statement: I reviewed the patient's lab results. Please see the discussion above 08/14/23 19:48 08/14/23 19:48 Labs: Lab Results 08/14/23 08/14/23 08/15/23 Range/Units 19:48 21:40 00:09 WBC 11.2 H (4.8-10.8) X10*3/uL RBC 5.29 (4.60-5.80) X10*6/uL Hgb 14.3 (14.0-18.0) g/dl Hct 41.6 L (42.0-52.0) % MCV 78.6 L (80.0-98.0) fL MCH 27.0 (27.0-33.0) pg MCHC 34.4 (31.0-36.0) g/dl RDW 13.8 (11.0-16.0) % Plt Count 256 (160-400) X10*3/uL MPV 9.3 L (9.4-12.4) fL Immature Gran % (Auto) 0.2 (0.0-0.4) % Neut % (Auto) 49.3 (45-73) % Lymph % (Auto) 42.9 H (20-40) % Williams % (Auto) 4.8 (2-11) % Eos % (Auto) 2.4 (0-4) % Baso % (Auto) 0.4 (0-2) % Lymph # (Auto) 4.8 (1.2-4.9) X10*3/uL Williams # (Auto) 0.5 (0.1-1.2) X10*3/uL Eos # (Auto) 0.3 (0.0-0.4) X10*3/uL Baso # (Auto) 0.0 (0.0-0.2) X10*3/uL Abs Immat Gran (auto) 0.02 (0.00-0.03) X10*3/uL Absolute Neuts (auto) 5.5 (2.0-8.3) x10*3/uL Absolute Nucleated RBC 0.000 (0.0-0.012) X10*3/uL Nucleated RBC % (auto) 0.0 (0.0-0.2) /100WBC PT 10.9 L (11.1-13.3) SEC INR 0.9 (0.9-1.1) Sodium 141 (135-145) mmol/L Potassium 3.5 (3.3-5.1) mmol/L Chloride 104 (96-108) mmol/L Carbon Dioxide 29 (22-29) mmol/L Anion Gap 12 (12-20) BUN 11 (9-16) mg/dL Creatinine 1.03 (0.5-1.4) mg/dL Estim Creat Clear Calc 154.2 Estimated GFR > 60 Random Glucose 99 (60-115) mg/dL Calcium 9.4 (8.4-10.2) mg/dL Magnesium 2.2 (1.6-2.6) mg/dL Total Bilirubin 0.6 (0.0-1.0) mg/dL Direct Bilirubin 0.2 (0.0-0.5) mg/dL AST 19 (5-37) U/L ALT 24 (0-40) U/L Alkaline Phosphatase 57 (39-117) U/L Total Protein 7.5 (6.5-8.0) g/dL Albumin 4.5 (3.5-5.0) g/dL Lipase 25 (8-78) U/L Urine Color Yellow Urine Appearance Clear Urine pH 6.0 (5.0-9.0) Ur Specific Gravel Switch >= 1.030 H (1.005-1.025) Urine Protein Negative (Neg-Trace) mg/dL Urine Glucose (UA) Negative (Negative) mg/dL Urine Ketones Trace (Negative) mg/dL Urine Blood Negative (Negative) Urine Nitrite Negative (Negative) Ur Leukocyte Esterase Negative (Negative) Stool Occult Blood NEGATIVE (NEGATIVE) Radiology Impression Discussion of test interpretation with radiology: I have reviewed the radiologist's reading. Radiologist Impression: Please see the discussion above External Record Review External record reviewed: Outpatient record and Prior outpatient labs Medications Administered Discontinued Medications Generic Name Dose Route Start Last Admin Trade Name Freq PRN Reason Stop Dose Admin Iohexol 85 ml 08/15/23 00:40 08/15/23 00:41 Iohexol 350 Mg/Ml 100 Ml Infus..Btl IV 08/15/23 00:41 85 ml ONCE ONE Administration Critical Care Time Critical Care Time Critical Care Time: Yes Total Critical Care Time: 30 Attestation: I personally attest to this time spent taking care of the patient. Discharge Plan Discharge Clinical Impression: Bleeding hemorrhoid, Gastritis Patient Disposition: Home, Self-Care Instructions: Hemorrhoids (ED), Gastritis (DC), Diet for Stomach Ulcers and Gastritis (ED) Additional Instructions: Recommend follow-up with your primary care doctor in the next 1-2 days. Return to the ER for any worsening symptoms. Prescriptions: No Action acetaminophen 650 mg tablet extended release 650 mg PO Q8H PRN (Reason: fever or pain) Qty: 20 0RF oxycodone-acetaminophen [Percocet] 5-325 mg tablet 1 tab PO Q6H PRN (Reason: pain (scale score 4-6)) 7 Days Qty: 28 0RF Rx Instructions: Partial Fill upon patient request. (DME) Kneeling Scooter See Rx Instructions .ROUTE .MEDSUPPLY Qty: 1 0RF Rx Instructions: As directed oxycodone 5 mg tablet 5 mg PO Q8H PRN (Reason: pain) 7 Days Qty: 21 0RF Rx Instructions: Partial Fill upon patient request. acetaminophen 325 mg tablet 650 mg PO Q4-6H PRN (Reason: fever or pain) 30 Days Qty: 240 3RF
[2023-08-14 19:25] VITALS: BP 132/63; PULSE 82; RESP 16; TEMP 36.2; O2SAT 98; BMI 43.3
[2023-08-14 19:52] LABS: MANUAL DIFF FLAG NO
[2023-08-14 19:54] LABS: Basophils Percent Auto 0.4 % (0-2); Eosinophils Absolute Auto 0.3 X10*3/uL (0.0-0.4); Eosinophils Percent Auto 2.4 % (0-4); Hematocrit 41.6 % (42.0-52.0); Hemoglobin 14.3 g/dl (14.0-18.0); Imm Gran Abs Auto 0.02 X10*3/uL (0.00-0.03); Imm Gran Pct Auto 0.2 % (0.0-0.4); Lymphocytes Absolute Auto 4.8 X10*3/uL (1.2-4.9); Lymphocytes Percent Auto 42.9 % (20-40); Mean Corpuscular HGB Conc 34.4 g/dl (31.0-36.0); Mean Corpuscular Volume 78.6 fL (80.0-98.0); Mean Platelet Volume 9.3 fL (9.4-12.4); Monocytes Absolute Auto 0.5 X10*3/uL (0.1-1.2); Monocytes Percent Auto 4.8 % (2-11); Neutrophils Absolute Auto 5.5 x10*3/uL (2.0-8.3); Neutrophils Percent Auto 49.3 % (45-73); Platelet Count 256 X10*3/uL (160-400); Red Blood Count 5.29 X10*6/uL (4.60-5.80); Red Cell Distribution Width 13.8 % (11.0-16.0); White Blood Count 11.2 X10*3/uL (4.8-10.8)
[2023-08-14 20:00] LABS: INTERNATIONAL NORM RATIO 0.9 (0.9-1.1); Prothrombin Time 10.9 SEC (11.1-13.3)
[2023-08-14 20:10] LABS: Alanine Aminotransferase 24 U/L (0-40); Albumin Level 4.5 g/dL (3.5-5.0); Alkaline Phosphatase 57 U/L (39-117); Anion Gap 12 (12-20); Aspartate Amino Transferase 19 U/L (5-37); Bilirubin Direct 0.2 mg/dL (0.0-0.5); Bilirubin Total 0.6 mg/dL (0.0-1.0); Blood Urea Nitrogen 11 mg/dL (9-16); Calcium 9.4 mg/dL (8.4-10.2); Carbon Dioxide 29 mmol/L (22-29); Chloride 104 mmol/L (96-108); Creatinine Clr Calc Pharmacy 154.2; Estimated Glomerular Filt Rate > 60; Glucose Random 99 mg/dL (60-115); Lipase 25 U/L (8-78); Magnesium 2.2 mg/dL (1.6-2.6); Potassium 3.5 mmol/L (3.3-5.1); Sodium 141 mmol/L (135-145); Total Protein 7.5 g/dL (6.5-8.0)
[2023-08-14 22:16] LABS: Appearance Urine Clear; Color Urine Yellow; Glucose Urine UA Negative (Negative); Leukocyte Esterase Urine Negative (Negative); Nitrite Urine Negative (Negative); Specific Gravity - Urine >= 1.030 (1.005-1.025); Urine Blood Negative (Negative); Urine Ketones Trace mg/dL (Negative); Urine Protein Negative (Neg-Trace)
[2023-08-15 00:02] VITALS: BP 105/65; PULSE 68; RESP 16; O2SAT 98
[2023-08-15 00:22] LABS: OBS Int Ctl Valid YES; OBS1 NEGATIVE (NEGATIVE)
[2023-08-15] MEDS: iohexoL 350 MG/ML 100 ML INFUS..BTL 85 ML IV (00:41)
[2023-08-15 01:27] VITALS: BP 119/78; PULSE 74; RESP 18; TEMP 36.7; O2SAT 100
--- NOTE | 2023-08-15 01:28 | MHC.EDTECH ---
Hourly rounds and vitals completed,patient is waiting for CT results,patient is resting comfortably at this time. call wilson in reach
== END 2023-08-15 02:39 | disposition home or self-care (01) ==
PROVIDERS: Physician Assistant; Emergency Provider Student in an Organized Health Care Education/Training Program
DX: K29.70 Gastritis, unspecified, without bleeding (principal); R10.12 Left upper quadrant pain; K64.9 Unspecified hemorrhoids; K92.1 Melena; Z79.899 Other long term (current) drug therapy
CPT/HCPCS: 36415; 74177; 80048; 80076; 81003; 82272; 83690; 83735; 85025; 85610; 99284; Q9967

== ENCOUNTER 2024-02-15 19:33 | Emergency (ER) | payer OTHER, SELFPAY ==
--- NOTE | ~2024-02-15 | XR_ITS ---
EXAMINATION: XR ANKLE, RIGHT CLINICAL INFORMATION: atraumatic pain, s/p malleolus fx repair COMPARISON: Right ankle March 22, 2023 TECHNIQUE: Three views of the right ankle. FINDINGS: Status post ORIF. Orthopedic plate and screw lateral malleolus. The most superior screw in the lateral malleolus at the orthopedic plate has dislodged and now lies superficial to the orthopedic plate in the soft tissues. Orthopedic button the medial and lateral side of ankle for a syndesmotic fixation remain in place. No acute fracture or dislocation. Ankle mortise remains congruent. XR/XR ankle RT min 3V IMPRESSION: Status post ORIF. The most superior screw in the lateral malleolus at the orthopedic plate has dislodged and now lies superficial to the orthopedic plate in the soft tissues. Electronically signed by: Abiel Gutierres MD 02/15/2024 11:29 PM EDT
[2024-02-15 19:36] VITALS: BP 140/75; PULSE 89; RESP 18; TEMP 36.9; O2SAT 98; BMI 43.1
--- NOTE | 2024-02-15 19:36 | ED_ITS ---
HPI - Extremity Injury (Lower) General Chief Complaint: Extremity Problem Stated Complaint: left ankle swelling and pain Related Data Previous Rx's ?Medication ?Instructions ?Recorded acetaminophen 650 mg 650 mg PO Q8H PRN fever or pain 01/25/23 tablet,extended release #20 tabs Kneeling Scooter #1 ea 02/01/23 oxycodone-acetaminophen 5 mg-325 1 tab PO Q6H PRN pain (scale score 02/08/23 mg tablet (Percocet) 4-6) 7 days #28 tabs acetaminophen 325 mg tablet 650 mg (2 x 325 mg) PO Q4-6H PRN 02/20/23 fever or pain 30 days #240 tabs oxycodone 5 mg tablet 5 mg PO Q8H PRN pain 7 days #21 02/20/23 tabs Allergies Allergy/AdvReac Type Severity Reaction Status Date / Time amoxicillin [AMOXICILLIN] Allergy Mild Rash Verified 02/15/24 19:38 ibuprofen [IBUPROFEN] Allergy Mild RASH Verified 02/15/24 19:38 morphine Allergy Mild rashes Verified 02/15/24 19:38 Penicillins [PENICILLINS] Allergy Mild Rash Verified 02/15/24 19:38 [facility] Past Medical History Medical History No pertinent past medical history Surgical History History of back surgery S/P ACL repair Family History Family History Mother No problems noted. Father No problems noted. Social History Social History Alcohol intake: never Patient Tobacco Use Status: Former Tobacco user Substance Use Type: Marijuana Advance Directives: No Advance Directives Information Provided: No Do you have a plan to hurt others: No Plan Current occupational status: unemployed Current occupation: right handed Physical Exam Vital Signs: Vital Signs: Last Vital Signs Temp 98.5 F 02/15/24 19:36 Pulse 89 02/15/24 19:36 Resp 18 02/15/24 19:36 BP 140/75 H 02/15/24 19:36 Pulse Ox 98 02/15/24 19:36 O2 Del Method Room Air 08/22/24 19:36 BMI result Body Mass Index 43.1 Course Course Course Narrative: This is a Rapid Medical Examination (RME) performed by Santos Butt PA-C in triage. Full HPI, ROS, assessment and treatment plan per primary provider in the Main ED. 24 yo male here for eval of right ankle pain/ swelling x2 wks. hx of right lateral malleolus fracture requiring repair 1 year ago. states his ankle has felt fine up until 2 weeks ago with reported pain and swelling to lateral aspect. no new injury/ trauma. + no signifcant swelling noted to right ankle. 2+ pt/dp pulse intact. Plan: xr Reevaluation(s) Reevaluation #1: Patient left the emergency department before myself or any of the other clinicians could review or explain physical exam findings, test results, need or lack there of for additional testing, treatment options, or a treatment plan. Discharge Plan Discharge Clinical Impression: Pain in right ankle Patient Disposition: Left W/O Completing Treatment Prescriptions: No Action acetaminophen 650 mg tablet extended release 650 mg PO Q8H PRN (Reason: fever or pain) Qty: 20 0RF oxycodone-acetaminophen [Percocet] 5-325 mg tablet 1 tab PO Q6H PRN (Reason: pain (scale score 4-6)) 7 Days Qty: 28 0RF Rx Instructions: Partial Fill upon patient request. (DME) Kneeling Scooter See Rx Instructions .ROUTE .MEDSUPPLY Qty: 1 0RF Rx Instructions: As directed oxycodone 5 mg tablet 5 mg PO Q8H PRN (Reason: pain) 7 Days Qty: 21 0RF Rx Instructions: Partial Fill upon patient request. acetaminophen 325 mg tablet 650 mg PO Q4-6H PRN (Reason: fever or pain) 30 Days Qty: 240 3RF Discharge Date/Time: 02/16/24 01:30
== END 2024-02-16 01:30 | disposition left against medical advice (07) ==
PROVIDERS: Emergency Provider Emergency Medicine
DX: M25.572 Pain in left ankle and joints of left foot (principal)
CPT/HCPCS: 73610; 99281; 99283

== ENCOUNTER 2025-03-15 19:23 | Emergency (ER) | payer MEDICAID, SELFPAY ==
--- NOTE | ~2025-03-15 | XR_ITS ---
CLINICAL HISTORY: pain, surgical screw dislodged 3 view right ankle Comparison: CR/IL/SR - XR ANKLE 3 OR MORE VIEWS RIGHT - 02/15/24 19:57 EDT Findings: Prior open reduction internal fixation of the distal fibula. The superior screw has been dislodged into the adjacent soft tissues as seen on the prior study. The screw appears to be closer to the skin surface and on the prior exam. Remaining hardware is unremarkable. There has also been surgical fusion of the distal tibiofibular articulation with an unremarkable postoperative appearance. No acute fracture. No dislocation. No significant loss of joint space, osteophytes, or erosions. No ankle effusion. No radiopaque foreign body. IMPRESSION: Status post open reduction internal fixation of the distal fibula. A screw has been dislodged into the adjacent soft tissues, as previously seen. The screw may have migrated closer to the skin surface. This document has been electronically signed by: Felicia Barney MD on 03/15/2025 20:57:14
[2025-03-15 19:38] VITALS: BP 154/87; PULSE 92; RESP 16; TEMP 36.6; O2SAT 98; BMI 41.4
--- NOTE | 2025-03-15 19:38 | ED.GENADULT ---
HPI - General Adult General Chief complaint: Extremity Problem Stated complaint: right leg has screw protruding (from surgery 2022) Time Seen by Provider: 03/15/25 20:57 Source: patient Limitations: no limitations History of Present Illness ED Provider: Curtis Dye PA-C HPI narrative: 25-year-old male who is status post ORIF lateral mal right ankle, ORIF syndesmosis right ankle 02/10/2023 Dr. Patel presents with a surgical site infection. Patient has been having ongoing issues with 1 of the surgical screws that has migrated through the skin. The screw has further migrated through the skin, the region has become more sensitive to touch. Associated purulent drainage from the site. Denies inability to ambulate, inability to flex or extend from the ankle, no fever. Related Data Previous Rx's ?Medication ?Instructions ?Recorded acetaminophen 650 mg 650 mg PO Q8H PRN fever or pain 01/25/23 tablet,extended release #20 tabs Kneeling Scooter #1 ea 02/01/23 oxycodone-acetaminophen 5 mg-325 1 tab PO Q6H PRN pain (scale score 02/08/23 mg tablet (Percocet) 4-6) 7 days #28 tabs acetaminophen 325 mg tablet 650 mg (2 x 325 mg) PO Q4-6H PRN 02/20/23 fever or pain 30 days #240 tabs oxycodone 5 mg tablet 5 mg PO Q8H PRN pain 7 days #21 02/20/23 tabs doxycycline hyclate 100 mg capsule 100 mg PO BID #13 caps 03/15/25 oxycodone 5 mg tablet 5 mg PO Q8H PRN pain, moderate #10 03/15/25 tabs Allergies Allergy/AdvReac Type Severity Reaction Status Date / Time amoxicillin (AMOXICILLIN) Allergy Mild Rash Verified 03/15/25 19:43 ibuprofen (IBUPROFEN) Allergy Mild RASH Verified 03/15/25 19:43 morphine Allergy Mild rashes Verified 03/15/25 19:43 Penicillins (PENICILLINS) Allergy Mild Rash Verified 03/15/25 19:43 Review of Systems Review of Systems: Yes all other systems are reviewed and are negative Constitutional: Constitutional: Denies fatigue and Denies fever(s) Musculoskeletal: Musculoskeletal: Reports arthralgias and Denies joint swelling Integumentary/Breasts: Skin/Breast: Reports skin swelling, Reports sores and Reports wounds Endocrine: Endocrine: Denies fatigue PMFSH Past Medical History Attestation statement: The following information was validated with the patient. Medical History No pertinent past medical history Surgical History History of back surgery S/P ACL repair Family History Family History Mother No problems noted. Father No problems noted. Social History Social History Alcohol intake: never Patient Tobacco Use Status: Former Tobacco user Smoked in Last 30 Days: No Use of substances other than those prescribed or required for medical reasons: No Substance Use Type: Marijuana Advance Directives: No Advance Directives Information Provided: No Do you have a plan to hurt others: No Plan Current occupational status: unemployed Current occupation: right handed Physical Exam ED Vital Signs: Vital Signs - 24 hr 03/15/25 19:38 03/15/25 22:14 03/15/25 22:41 Temperature 97.9 F 0 F L Pulse Rate 92 75 75 Respiratory Rate 16 16 16 Blood Pressure 154/87 H 120/65 120/65 Pulse Oximetry 98 98 98 Oxygen Delivery Method Room Air Room Air Room Air BMI result Body Mass Index 41.4 Const Other: Alert Orientation/consciousness: patient oriented x3 Resp Effort & Inspection: normal respiratory effort Cardio Other: Normal peripheral perfusion Skin Other: Warm dry no rash Neuro General: patient oriented x3, gait normal, no focal motor deficits and CN's II-XI intact bilaterally Extrem Other: Able to flex and extend from the ankle, see additional pictures Psych Other: Cooperative Course Course Course Narrative: This is an RME: Additional HPI, ROS, PE not included below will be deferred to primary provider. RME assessment and note performed by: Debra Oviedo PA-C This is a [id number]-male, R ankle ORIF on 02/08/[address] Patel, who presents to the ER with a complaint of right ankle pain and surgical screw poking through skin. Reports that he has had chronic pain in his ankle since however last night he noticed the screw poking outside of his ankle. No fevers or chills. surgical screw noted on the right lateral ankle, no surrounding erythema, ttp. > gave heads-up message to Dong Dominguez PA-C in regards to patient Plan: xray, labs, further ER eval needed 8:37 PM 03/15/2025 (Debra Oviedo PA-C): Spoke to ROWAN Fay from Orthopedics, who also spoke with Dr. Patel, orthopedist. Dr. Patel said to proceed with labs and x-ray while patient is there that the patient does not necessarily require admission. If the patient feels he can go home, can go home on oral abx and follow up with us on Monday in the office, or if the patient cannot handle being home we can admit him as well and start IV abx. This is clearly a chronic issue as well, this isn?t something that just happens out of the blue, Per NE, it likely would not make a big difference whether he is admitted or follows up outpatient. Consultations Consultation #1: Spoke to ROWAN Fay from Orthopedics, who also spoke with Dr. Patel, orthopedist. Dr. Patel said to proceed with labs and x-ray while patient is there that the patient does not necessarily require admission. If the patient feels he can go home, can go home on oral abx and follow up with us on Monday in the office, or if the patient cannot handle being home we can admit him as well and start IV abx. This is clearly a chronic issue as well, this isn?t something that just happens out of the blue, Per NE, it likely would not make a big difference whether he is admitted or follows up outpatient. Time: 20:37 Medications Administered Discontinued Medications Generic Name Dose Route Start Last Admin Trade Name Freq PRN Reason Stop Dose Admin Doxycycline Monohydrate 100 mg 03/15/25 21:58 03/15/25 22:12 Doxycycline Monohydrate 100 Mg Capsule PO 03/15/25 21:59 100 mg ONCE ONE Administration Oxycodone HCl 5 mg 03/15/25 21:58 03/15/25 22:12 Oxycodone Hcl Immed Release 5 Mg Tablet PO 03/15/25 21:59 5 mg ONCE ONE Administration Medical Decision Making Medical Decision Making MDM Narrative: 25-year-old male who is status post ORIF lateral mal right ankle, ORIF syndesmosis right ankle 02/10/2023 Dr. Patel presents with a surgical site infection. Patient has been having ongoing issues with 1 of the surgical screws that has migrated through the skin. The screw has further migrated through the skin, the region has become more sensitive to touch. Associated purulent drainage from the site. Denies inability to ambulate, inability to flex or extend from the ankle, no fever. Problem: Chronic wound secondary to surgery History: Per patient I have considered the following differential diagnoses: Cellulitis, purulent cellulitis, osteomyelitis, septic joint Plan: Orthopedic service was already consulted from triage, the patient will be place on antibiotics, given pain control, he will be seen Monday in the office to schedule surgery. The patient is in agreement with the plan. Screening labs and x-ray already obtained from triage. I have independently reviewed the following tests: Labs: Slight leukocytosis of 11, no left shift, not anemic, no electrolyte abnormality X-ray right ankle:IMPRESSION: Status post open reduction internal fixation of the distal fibula. A screw has been dislodged into the adjacent soft tissues, as previously seen. The screw may have migrated closer to the skin surface. Differential Diagnosis Differential Diagnoses: The differential diagnosis associated with the presentation includes See medical decision making Admission/Observation Consideration of admission/observation: Escalation of care including admission/observation considered Not applicable Consult Healthcare Provider Management of the patient was discussed with: [employer] Tech Ortho Lab Data [facility] Lab Attestation statement: I reviewed the patient's lab results. 03/15/25 20:11 03/15/25 20:11 Labs: Lab Results 03/15/25 Range/Units 20:11 WBC 11.2 H (4.8-10.8) X10*3/uL RBC 4.97 (4.60-5.80) X10*6/uL Hgb 13.6 L (14.0-18.0) g/dl Hct 37.9 L (42.0-52.0) % MCV 76.3 L (80.0-98.0) fL MCH 27.4 (27.0-33.0) pg MCHC 35.9 (31.0-36.0) g/dl RDW 13.5 (11.0-16.0) % Plt Count 268 (160-400) X10*3/uL MPV 9.3 L (9.4-12.4) fL Immature Gran % (Auto) 0.2 (0.0-0.4) % Neut % (Auto) 53.0 (45-73) % Lymph % (Auto) 39.0 (20-40) % [place] % (Auto) 5.9 (2-11) % Eos % (Auto) 1.6 (0-4) % Baso % (Auto) 0.3 (0-2) % Lymph # (Auto) 4.4 (1.2-4.9) X10*3/uL [place] # (Auto) 0.7 (0.1-1.2) X10*3/uL Eos # (Auto) 0.2 (0.0-0.4) X10*3/uL Baso # (Auto) 0.0 (0.0-0.2) X10*3/uL Abs Immat Gran (auto) 0.02 (0.00-0.03) X10*3/uL Absolute Neuts (auto) 5.9 (2.0-8.3) x10*3/uL Absolute Nucleated RBC 0.000 (0.0-0.012) X10*3/uL Nucleated RBC % (auto) 0.0 (0.0-0.2) /100WBC Sodium 144 (135-145) mmol/L Potassium 3.6 (3.3-5.1) mmol/L Chloride 110 H (96-108) mmol/L Carbon Dioxide 26 (22-29) mmol/L Anion Gap 12 (12-20) BUN 14 (9-16) mg/dL Creatinine 0.95 (0.5-1.4) mg/dL Estim Creat Clear Calc 165.1 Estimated GFR > 60 Random Glucose 104 (60-115) mg/dL Calcium 9.4 (8.4-10.2) mg/dL Total Bilirubin 0.5 (0.0-1.0) mg/dL Direct Bilirubin 0.2 (0.0-0.5) mg/dL AST 23 (5-37) U/L ALT 29 (0-40) U/L Alkaline Phosphatase 60 (39-117) U/L Total Protein 7.2 (6.5-8.0) g/dL Albumin 4.8 (3.5-5.0) g/dL Radiology Impression Discussion of test interpretation with radiology: I have reviewed the radiologist's reading. Discharge Plan Discharge Clinical Impression: Cellulitis of right ankle Patient Disposition: Home, Self-Care Instructions: Cellulitis (ED) Additional Instructions: You will be following up with the orthopedic service on Monday. I spoke with them directly, they are requesting that you contact the office when they open on Monday morning. The provider who was on-call at this time, can not schedule an appointment given the outpatient office is closed. You will definitely be seen on Monday. Complete the course of doxycycline as directed this is the antibiotic. Use the oxycodone as needed for pain. Prescriptions: New doxycycline hyclate 100 mg capsule 100 mg PO BID Qty: 13 0RF oxycodone 5 mg tablet 5 mg PO Q8H PRN (Reason: pain, moderate) Qty: 10 0RF Rx Instructions: Partial Fill upon patient request. No Action acetaminophen 650 mg tablet extended release 650 mg PO Q8H PRN (Reason: fever or pain) Qty: 20 0RF oxycodone-acetaminophen [Percocet] 5-325 mg tablet 1 tab PO Q6H PRN (Reason: pain (scale score 4-6)) 7 Days Qty: 28 0RF Rx Instructions: Partial Fill upon patient request. (DME) Kneeling Scooter See Rx Instructions .ROUTE .MEDSUPPLY Qty: 1 0RF Rx Instructions: As directed oxycodone 5 mg tablet 5 mg PO Q8H PRN (Reason: pain) 7 Days Qty: 21 0RF Rx Instructions: Partial Fill upon patient request. acetaminophen 325 mg tablet 650 mg PO Q4-6H PRN (Reason: fever or pain) 30 Days Qty: 240 3RF Referrals: Florentin Patel MD [Physician, Orthopedics] Referral Note: right ankle purulent cellulitis, protruding screw Stand Alone Forms: Work/School Release Interventions: ED Discharge Assessment Last Done: 03/15/25 22:41 Discharge Date/Time: 03/15/25 22:41 Print Language: Japanese
[2025-03-15 20:16] LABS: MANUAL DIFF FLAG NO
--- OUTSIDE RECORDS SUMMARY | 2025-03-15 20:23 | XMS_ITS | Clinical Summary ---
[facility] [address] [place] [address] Care Team Providers Care Makeup Instructor Name Role Phone Crystal Floyd MD Primary Care Provide r Surgical History Surgery Date Site/Laterality Comments KNEE SURGERY 2013 Left PROCEDURE: HISTORICAL KNEE SURGERY; COMMENT: ACL MOLE REMOVAL 2004? PROCEDURE: HISTORICAL MOLE (REMOVAL OF) Medical History Medical History Date Comments Seizure (CMS/HCC V24, CMS/HCC V28) DX:Seizure (HCC); COMMENT: first seizure 01/11 Family History Medical History Relation Name Comments Hypertension Mother Stroke Mother Thyroid disease Mother Diabetes Paternal Grandfather Diabetes Paternal Grandmother Relation Name Status Comments Mother Paternal Grandfather Paternal Grandmother Social History Tobacco Use Types Packs/Day Years Used Date Smoking Tobacco: Every Day Cigarettes 0.5 7.7 Started: 06/26/2017 Smokeless Tobacco: Never Alcohol Use Standard Drinks/Week Comments Yes 0 (1 standard drink = 0.6 oz pur e alcohol) Sex and Gender Information Value Date Recorded Sex Assigned at Not on file Legal Sex Male 4:37 AM EST Gender Identity Not on file Sexual Orientation Not on file Obstetrics History Plan of Treatment Health Maintenance Due Date Last Done Comments HPV Vaccines (1 - Male 3-dos e series) 2014 DTaP,Tdap,and Td Vaccines (1 - Tdap) 2018 Hepatitis B Vaccines (1 of 3 - 19+ 3-dose series) 2018 Depression Screening 06/26/2024 COVID-19 Vaccine (1 - 2023-2 5 season) 2025 Influenza Vaccine (#1) 2025 HIB Vaccines Aged Out No longer eligi ble based on patient's age to complete this topic Hepatitis A Vaccines Aged Out No long er eligible based on patient's age to complete this topic IPV Vaccines Aged Out No longer eligi ble based on patient's age to complete this topic MMR Vaccines Aged Out No longer eligi ble based on patient's age to complete this topic Meningococcal ACWY Vaccine Aged Out N o longer eligible based on patient's age to complete this topic Meningococcal B Vaccine Aged Out No l onger eligible based on patient's age to complete this topic Pneumococcal Vaccine: Pediat rics (0 to 5 Years) and At-Risk Patients (6 to 49 Years) Aged Out No longer eligible b ased on patient's age to complete this topic RSV Immunization Patients Un reagan 20 months Aged Out No longer eligible b ased on patient's age to complete this topic Varicella Vaccines Aged Out No longer eligible based on patient's age to complete this topic Care Teams Makeup Instructor Relationship Specialty Start Date End Date Crystal Floyd MD PCP - General Internal Medicine 07/09/18
[2025-03-15 20:25] LABS: Hematocrit 37.9 % (42.0-52.0); Hemoglobin 13.6 g/dl (14.0-18.0); Imm Gran Abs Auto 0.02 X10*3/uL (0.00-0.03); Imm Gran Pct Auto 0.2 % (0.0-0.4); Lymphocytes Absolute Auto 4.4 X10*3/uL (1.2-4.9); Mean Corpuscular HGB Conc 35.9 g/dl (31.0-36.0); Mean Corpuscular Hemoglobin 27.4 pg (27.0-33.0); Mean Corpuscular Volume 76.3 fL (80.0-98.0); NRBC Abs Auto 0.000 X10*3/uL (0.0-0.012); NRBC Pct Auto 0.0 /100WBC (0.0-0.2); Platelet Count 268 X10*3/uL (160-400); Red Blood Count 4.97 X10*6/uL (4.60-5.80); White Blood Count 11.2 X10*3/uL (4.8-10.8)
[2025-03-15 20:39] LABS: Alanine Aminotransferase 29 U/L (0-40); Albumin Level 4.8 g/dL (3.5-5.0); Alkaline Phosphatase 60 U/L (39-117); Anion Gap 12 (12-20); Aspartate Amino Transferase 23 U/L (5-37); Blood Urea Nitrogen 14 mg/dL (9-16); Calcium 9.4 mg/dL (8.4-10.2); Carbon Dioxide 26 mmol/L (22-29); Chloride 110 mmol/L (96-108); Creatinine Clr Calc Pharmacy 165.1; Estimated Glomerular Filt Rate > 60; Potassium 3.6 mmol/L (3.3-5.1); Sodium 144 mmol/L (135-145); Total Protein 7.2 g/dL (6.5-8.0)
[2025-03-15] MEDS: oxyCODONE HCl Immed Release 5 MG TABLET PO (22:12)
[2025-03-15 22:14] VITALS: BP 120/65; PULSE 75; RESP 16; O2SAT 98
[2025-03-15 22:41] VITALS: BP 120/65; PULSE 75; RESP 16; TEMP -17.7; TEMP 0; O2SAT 98
== END 2025-03-15 22:41 | disposition home or self-care (01) ==
PROVIDERS: Physician Assistant Medical; Emergency Provider Emergency Medicine Emergency Medical Services
DX: T84.098A Other mechanical complication of other internal joint prosthesis, initial encounter (principal); L76.82 Other postprocedural complications of skin and subcutaneous tissue; L03.115 Cellulitis of right lower limb; Y83.8 Other surgical procedures as the cause of abnormal reaction of the patient, or of later complication, without mention of misadventure at the time of the procedure; Y92.9 Unspecified place or not applicable; Y79.3 Surgical instruments, materials and orthopedic devices (including sutures) associated with adverse incidents; Z96.7 Presence of other bone and tendon implants
CPT/HCPCS: 36415; 73610; 80048; 80076; 85025; 99284

== ENCOUNTER → 2025-03-15 19:41 | Outpatient (BNV) | payer MEDICAID, SELFPAY | PROVIDERS: Visit Provider Radiology Diagnostic Radiology | DX: T84.126A Displacement of internal fixation device of bone of right lower leg, initial encounter (principal) | CPT/HCPCS: 73610 ==